=== PATIENT | male | born 1990 ===

== ENCOUNTER 2021-02-14 10:37 | Outpatient (REF) | payer OTHER, SELFPAY ==
[2021-02-14 13:36] LABS: Hematocrit 45.7 % (42.0-52.0); Hemoglobin 15.4 g/dl (14.0-18.0); Mean Corpuscular HGB Conc 33.7 g/dl (31.0-36.0); Mean Corpuscular Hemoglobin 28.8 pg (27.0-33.0); Mean Corpuscular Volume 85.6 fL (80.0-98.0); Mean Platelet Volume 8.8 fL (9.4-12.4); Platelet Count 288 X10*3/uL (160-400); Red Blood Count 5.34 X10*6/uL (4.60-5.80); Red Cell Distribution Width 11.8 % (11.0-16.0); White Blood Count 7.7 X10*3/uL (4.8-10.8)
[2021-02-14 14:54] LABS: Alanine Aminotransferase 26 U/L (0-40); Albumin Level 4.4 g/dL (3.5-5.0); Alkaline Phosphatase 51 U/L (39-117); Anion Gap 16 (12-20); Aspartate Amino Transferase 27 U/L (5-37); Bilirubin Total 1.3 mg/dL (0.0-1.0); Blood Urea Nitrogen 16 mg/dL (9-16); Calcium 9.6 mg/dL (8.4-10.2); Carbon Dioxide 24 mmol/L (22-29); Chloride 105 mmol/L (96-108); Cholesterol 185 mg/dL; Estimated Glomerular Filt Rate > 60; Glucose Fasting 92 mg/dL (60-99); HDL Cholesterol 36 mg/dL; LDL Cholesterol Calculated 121 mg/dl; Potassium 4.6 mmol/L (3.3-5.1); Sodium 140 mmol/L (135-145); Total Protein 7.4 g/dL (6.5-8.0); Triglycerides 143 mg/dL
[2021-02-14 14:58] LABS: TSH reflex Free T4 1.89 uIU/mL (0.32-4.0)
== END 2021-02-14 10:38 | disposition home or self-care (01) ==
LOC: HO.WFDLDS 10:37
PROVIDERS: Visit Provider Hospitalist
DX: Z00.01 Encounter for general adult medical examination with abnormal findings (principal)
CPT/HCPCS: 36415; 80053; 80061; 84443; 85027

== ENCOUNTER 2021-02-21 10:04 | Outpatient (REF) | payer OTHER, SELFPAY ==
[2021-02-21 13:41] LABS: Anion Gap 13 (12-20); Blood Urea Nitrogen 17 mg/dL (9-16); Calcium 9.7 mg/dL (8.4-10.2); Carbon Dioxide 28 mmol/L (22-29); Chloride 103 mmol/L (96-108); Estimated Glomerular Filt Rate > 60; Glucose Fasting 99 mg/dL (60-99); Potassium 4.5 mmol/L (3.3-5.1); Sodium 139 mmol/L (135-145)
== END 2021-02-21 10:05 | disposition home or self-care (01) ==
LOC: HO.WFDLDS 10:04
PROVIDERS: Visit Provider Hospitalist
DX: Z00.00 Encounter for general adult medical examination without abnormal findings (principal); J35.1 Hypertrophy of tonsils
CPT/HCPCS: 36415; 80048

== ENCOUNTER 2023-11-19 15:39 | Outpatient (AMB) | payer OTHER, SELFPAY ==
--- NOTE | 2023-11-19 15:43 | MHC.OFFWIV ---
Intake Vital Signs 11/19/23 15:45 Height 5 ft 6 in Weight 200 lb BMI 32.3 BP 110/66 Blood Pressure Location Rt brachial Position Sitting Pulse 73 Pulse Source Pulse Oximeter Temp 99.1 F Temp Source Oral Pulse Oximetry (%) 98 Oxygen Delivery Method Room Air Intake Visit Reasons: EP RT wrist injury Intake Note: pt c/o RT wrist pain. Happened 2 weeks ago working on pool Patient Tobacco Use Status: Never used Tobacco Allergies No Known Allergies Allergy (Verified 11/19/23 15:43) Do you need a note to return to daycare/school/sports/work: No HPI EP RT wrist injury HPI Details This note is constructed using voice recognition software. While every effort has been made to ensure accuracy, skiver welt end errors may have been included. The patient is a 33 year old male who presents to the clinic today with right wrist pain for the last 2 weeks. He notes that he was working on his pool when his hand slipped and he struck the medial aspect of it. He denies numbness, tingling, reduced strength, reduced range of motion. He does report pain in the lateral aspect on flexion and extension. He has been wearing a brace at home which reduces his ability to mobilize the wrist, but it seems to help the pain some. [facility] Surgical History No pertinent past surgical history Family History Mother No problems noted. Father High blood pressure Social History Housing: Apartment Alcohol intake: current Alcohol intake frequency: a few times a week Alcohol type: beer Patient Tobacco Use Status: Never used Tobacco e-Cigarette/Vaping Use: Never Used Second Hand Smoke Exposure: No service: Yes Current occupational status: employed Current occupation: Cognitive needs: No Hearing needs: No Vision needs: No Review of Systems Const All systems reviewed & are unremarkable except as noted in HPI and below Physical Exam Vital Signs: Last Vital Signs Temp 99.1 F 11/19/23 15:45 Pulse 73 11/19/23 15:45 BP 110/66 11/19/23 15:45 Pulse Ox 98 11/19/23 15:45 Oxygen Delivery Method Room Air 11/19/23 15:45 BMI result Body Mass Index 32.3 Const General: cooperative, healthy appearing, comfortable, no acute distress and alert Orientation/consciousness: patient oriented x3 Limitations: no limitations Skin General skin exam: no rashes or lesions noted, elasticity normal and turgor normal Neuro General: patient oriented x3 Extrem Other: No areas of tenderness to palpation. Pain in lateral aspect of wrist on flexion and extension. Strength 5/5 equal bilaterally. Intact distal neurovascular exam. General: Yes normal to inspection, Yes full ROM, Yes capillary refill normal and Yes normal exam except as noted Psych Appearance: grossly normal Mental Status: mental status grossly normal Speech and movement: Normal speech and movement present Affect: normal affect Assessment & Plan Assessment & Plan (1) Wrist pain, right: Code(s): M25.531 - Pain in right wrist Plan: X-ray ordered for evaluation. No obvious deformity on imaging. Advised rest, ice, compression, elevation, and [id number] NSAIDs for pain management. Advised patient to follow up with worsening or failure to resolve. Plan See above for full details and plan. Orders: Orders XR wrist RT min 3V Today M25.531 - Pain in right wrist Coding Level of Care Code Est Pt Level 4 (47340) Diagnoses Wrist pain, right M25.531
[2023-11-19 15:45] VITALS: BP 110/66; PULSE 73; TEMP 37.3; O2SAT 98; BMI 32.3
== END 2023-11-19 16:42 | disposition home or self-care (01) ==
PROVIDERS: PCP Hospitalist; Visit Provider Registered Nurse
DX: M25.531 Pain in right wrist (principal)
CPT/HCPCS: 99214

== ENCOUNTER 2023-11-19 16:00 | Outpatient (REF) | payer OTHER, SELFPAY ==
--- NOTE | ~2023-11-19 | XR_ITS ---
EXAMINATION: XR WRIST, RIGHT CLINICAL INFORMATION: Right wrist pain. COMPARISON: None available. TECHNIQUE: PA, lateral, and oblique views of the right wrist. FINDINGS: Alignment is anatomic with normal joint spaces. No displaced fracture. No erosions or abnormal soft tissue calcifications. No focal radiographic soft tissue swelling. XR/XR wrist RT min 3V IMPRESSION: No acute abnormality. Electronically signed by: Bob Marley MD 11/20/2023 08:12 AM EDT
== END 2023-11-19 16:01 | disposition home or self-care (01) ==
LOC: HO.HMGCX 16:00
PROVIDERS: PCP Hospitalist; Visit Provider Registered Nurse
DX: M25.531 Pain in right wrist (principal)
CPT/HCPCS: 73110

== ENCOUNTER 2023-12-22 11:26 | Outpatient (AMB) | payer OTHER, SELFPAY ==
--- NOTE | 2023-12-22 11:30 | A.OFFPC_ITS ---
Vital Signs 12/22/23 11:34 Height 5 ft 6 in Weight 213 lb 2 oz BMI 34.4 BP 132/72 Blood Pressure Location Rt brachial Position Sitting Respiration 14 Pulse 77 Pulse Source Pulse Oximeter Pulse Oximetry (%) 98 Oxygen Delivery Method Room Air Intake Visit Reasons: sean from [facility] referral Intake Note: to establish care and referral to orthopedic Allergies No Known Allergies Allergy (Verified 12/22/23 11:32) Medication List - Last Reconciled 12/22/23 by JASBIR Alcantar No Known Home Meds Tobacco use date assessed: 12/22/23 Dental Screening Dental Screen Date: 12/22/23 Did you have a dental visit in the last 12 months?: Yes Did you have a dental problem in the last 6 months where you did not have access to dental care?: No Was dental information given to patient?: Patient has dentist HPI HPI Comments 2 History of Present Illness Details 33 y/o M with seasonal allergies, GERD, obesity s/p tonsillectomy 12/2021 Social: . 1 son, 1 year, healthy. . Denies sig family hx. Health Maintenance: Tdap UTD 2022 Flu today 12/22/23 Specialists: Orthopedics Here today to est care & for CPE Old records reviewed prior to todays visit. Feels well. No meds No longer having any GI sx. Not effected by seasonal allergies. Needs orthopedic referral for right wrist pain. Was seen at the walk-in clinic for this in November. The no an x-ray from this office visit were reviewed today. He is not currently in physical therapy. He is not taking any medications. He reports that the pain is intermittent. He reports that he has a known injury prior to the onset of the pain. Plan: routine screening labs today Flu shot today Refer to ortho for eval and tx of R wrist RTO 1 year CPE sooner PRN This note is constructed using voice recognition software. While every effort has been made to ensure accuracy in program manager environmental planning, still errors may have been included Sometimes, these errors may affect the content or meaning of the given sentence . An additional 20 was spent addressing the problem(s) noted at todays visit. This includes time spent before the visit reviewing the chart, time spent during the visit, and time spent after the visit on documentation [facility] Medical History (Updated 12/22/23 @ 18:03 by Kelli Andrew [facility]) Heart burn Eczema Surgical History (Updated 12/22/23 @ 11:54 by Jeane Black MA) Hx of tonsillectomy Family History (Updated 12/22/23 @ 11:55 by Jeane Black MA) Mother No problems noted. Father High blood pressure Maternal Grandfather Throat cancer Social History (Updated 12/22/23 @ 11:34 by Jeane Black MA) Household Members: None Both parents involved: No Caregiver staying overnight: No Housing: Apartment Are you a primary care professional to a significant other at home: No Do you presently have visiting nurse or other home services: No 75 years or older and lives alone: No Alcohol intake: current Alcohol intake frequency: a few times a week Alcohol type: beer Patient Tobacco Use Status: Never used Tobacco e-Cigarette/Vaping Use: Never Used Second Hand Smoke Exposure: No service: Yes Current occupational status: employed Current occupation: [employer] Cognitive needs: No Hearing needs: No Vision needs: No Questionnaire PHQ-9 Over the last 2 weeks, how often have you been bothered by any of the following problems? 1. Little interest or pleasure in doing things: not at all 2. Feeling down, depressed, or hopeless: not at all 3. Trouble falling or staying asleep, or sleeping too much: not at all 4. Feeling tired or having little energy: more than half the days 5. Poor appetite or overeating: not at all 6. Feeling bad about yourself - or that you are a failure or have let yourself or your family down: not at all 7. Trouble concentrating on things, such as reading the newspaper or watching television: not at all 8. Moving or speaking so slowly that other people could have noticed. Or the opposite - being so fidgety or restless that you have been moving around a lot more than usual: not at all 9. Thoughts that you would be better off or of hurting yourself in some way: not at all Total score: 2 Depression Screening Interpretation: Negative Depression Screening Done: Yes [id number] - PHQ-9 Billing: Yes Source: Developed by Drs. Elbert Peters, Agata Carlisle, Damien Perez and colleagues, with an educational rachel from [employer]. Thrive Questionnaire Date Thrive assessed: 12/22/23 I am a: Patient What is your living situation today?: I have a steady place to live Within the past 12 months, did the food you bought not last and you didn't have the money to get more?: Never true Within the past 12 months, did you worry whether your food would run out before you got money to buy more?: Never true Do you have trouble paying for medicines?: No Do you have trouble getting transportation to medical appointments?: No Do you have trouble paying your heating and electricity bill?: No Do you have trouble taking care of your child, family member or friend?: No Do you have trouble with day-to-day activities such as bathing, preparing meals, shopping, managing finances, etc.?: No Are you currently unemployed and looking for a job?: No Are you interested in more education?: No Please select the resources that you would like help with: None Currently or been in a relationship where the following occur: No concerns reported THRIVE Score: 0 AUDIT C Alcohol Use Questionnaire (AUDIT-C) 1. How often do you have a drink containing alcohol?: Monthly or less 2. How many drinks containing alcohol do you have on a typical day when you are drinking?: 1 or 2 3. How often do you have six or more drinks on one occasion?: Never Total Score: 1 Score Reviewed/Action Taken: Yes RAMON-7 AMB Questionnaire RAMON-7 Date RAMON - 7 assessed: 12/22/23 Feeling nervous, anxious, or on edge: 0 = Not at all Not being able to stop or control worryin = Not at all Worrying too much about different things: 1 = Several days Trouble relaxin = Not at all Being so restless that it is hard to sit still: 0 = Not at all Becoming easily annoyed or irritable: 1 = Several days Feeling afraid as if something awful might happen: 0 = Not at all Total RAMON-7 score (0-4 normal; 5-9 mild; 10-14 moderate; 15-21 severe): 2 Source: Developed by Drs. Elbert Peters, Agata Carlisle, Damien Perez and colleagues, with an educational rachel from [employer]. RAMON-7 Assessment Billing RAMON-7 Assessment Tool: RAMON-7 Assessment 58803 Review of Systems Const Details: Constitutional: Denies fever. Skin: Denies rash. Eye: Denies eye pain. ENMT: Denies sore throat and nasal congestion. Respiratory: Denies shortness of breath and cough. Gastrointestinal: Denies nausea, vomiting or abdominal pain. Cardiovascular: Denies chest pain and syncope. Genitourinary: Denies dysuria. Musculoskeletal: Denies back pain . Neurologic: Denies headaches, confusion, and weakness. Psychiatric: Denies suicidal thoughts and substance abuse. Allergy/ Immunologic: Denies impaired immunity. Physical exam (Primary Care) Vital Signs: Last Vital Signs Pulse 77 12/22/23 11:34 Resp 14 12/22/23 11:34 BP 132/72 12/22/23 11:34 Pulse Ox 98 12/22/23 11:34 Oxygen Delivery Method Room Air 12/22/23 11:34 BMI result Body Mass Index 34.4 BMI Assessment/Plan discussion: High BMI High, discussed plan: lifestyle Tobacco/Smoking Status: Tobacco use Status Tobacco use date assessed 12/22/23 12/22/23 11:36 Patient Tobacco Use Status Never used Tobacco 12/22/23 11:34 e-Cigarette/Vaping Use Never Used 12/22/23 11:34 PHQ-9: PHQ-9 Score PHQ-9: Total score 2 12/22/23 12:49 Depression Screening Interpretation: Negative Thrive Assessment: Date of Thrive Assessment Date Thrive assessed 12/22/23 12/22/23 11:55 Currently or been in a relationship where the following occur: No concerns reported Const Other: General: Well developed, well nourished, in no acute distress. Appears stated age. Head: Normocephalic, atraumatic. Eyes: Pupils are equal, round and reactive to light and accommodation. Conjunctivae are clear. Vision grossly normal. Ears: TMs clear AU, EACS WNL Nose: Patent, without discharge. Mouth: There are no ulcers or lesions noted. No inflammation, no post nasal drip, no plaques nor exudates. Neck: Supple, no adenopathy or thyromegaly. Lungs: Clear to auscultation bilaterally. No rales, rhonchi or wheeze noted. Good air flow in all suarez. Heart: Regular rate and rhythm. No murmurs, click, rubs or gallops are noted. Abdomen: Bowel sounds present in all quadrants. The abdomen is soft, nontender, with no masses or organomegaly noted. No hernias are noted. Musculoskeletal: Joints are nontender, without swelling, redness, or effusions. Range of motion is observed to be normal. 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 Extremities: No clubbing, cyanosis nor edema is noted. Neurologic: Gait and station normal. Cranial Nerves 2-12 intact. Motor strength grossly symmetrical and intact. No sensory loss. Balance normal. Skin: No rashes, ulcers, or lesions noted. Turgor is good. Skin color is good. Hair and nails are without abnormalities. Psych: Normal eye contact, affect and mood appropriate, and normal interactions. Patient is alert and appropriate to context. Office Procedures Flu Questionnaire Does the patient have a severe egg allergy?: No Does the patient have severe life threatening allergies?: No Does the patient have a fever or illness today?: No Has the patient ever had Guillain-Theodore Syndrome?: No Has the patient ever had any past reaction to a flu shot?: No Immunizations Fluarix Triv 3035-4767 (PF) 45 mcg (15 mcg x 3)/0.5 mL IM syringe Performing Provider: JASBIR Alcantar Performing Location: [facility] Administered by: Renay Fisher RN on 12/22/23 12:39 Dose Route Admin Location Dispensed Lot Number Expiration Date [facility] [employer] Machine Operator 0.5 mL IM Left Deltoid 0.5 mL [id number] 09/13/24 [id number] Gtxh VIS Given Date VIS Provided VIS Publication Date 12/22/23 Single Vaccine 20 Eligibility Eligibility Date Funding Source Not [facility] Eligible 12/22/23 Private Results Reviewed [place]ed[place] [facility] [place] [facility] [address] [place] [address] XRay Report Signed Patient: Christiano Hardy MR#: [id number] : 1990 Acct:[id number] Age/Sex: 33 / M ADM Date: 11/19/23 Loc: HO.[facility] Attending Dr: Milagro Garibay [employer] WORK[employer] Ordering Physician: Milagro Garibay NP Date of Service: 11/19/23 Procedure(s): XR wrist RT min 3V Accession Number(s): [id number] cc: Milagro Garibay [employer] UT[employer] WORK[employer]; Shannan Villeda NP~ EXAMINATION: XR WRIST, RIGHT CLINICAL INFORMATION: Right wrist pain. COMPARISON: None available. TECHNIQUE: PA, lateral, and oblique views of the right wrist. FINDINGS: Alignment is anatomic with normal joint spaces. No displaced fracture. No erosions or abnormal soft tissue calcifications. No focal radiographic soft tissue swelling. XR/XR wrist RT min 3V IMPRESSION: No acute abnormality. Electronically signed by: Bob Marley MD 11/20/2023 08:12 AM EDT RP Dictated By: Octavia Marley MD Signed By: <Electronically signed by Octavia Marley MD in OV> 11/20/23 0812 DD/ 1603 TD/TT: 11/19/23 1609 [employer] [place]: Coding Level of Care Code Est Pt Level 3 (87784) Est Pt Prev Care 18-39y(38470) Diagnoses Annual visit for general adult medical examination with abnormal findings Z00.01 Laboratory exam ordered as part of routine general medical examination Z00.00 Right wrist pain M25.531 Obesity (BMI 30.0-34.9) E66.811 Flexural eczema L20.82 Eczema type: flexural History of gastroesophageal reflux (GERD) Z87.19 History of seasonal allergies Z88.9 Additional Codes RAMON-7 Assessment Billing - RAMON-7 Assessment Tool: RAMON-7 Assessment 56996 ([id number]) Assessment & Plan Assessment & Plan (1) Annual visit for general adult medical examination with abnormal findings: Code(s): Z00.01 - Encounter for general adult medical examination with abnormal findings Category: Medical Plan: . (2) Laboratory exam ordered as part of routine general medical examination: Code(s): Z00.00 - Encounter for general adult medical examination without abnormal findings Category: Medical Plan: . (3) Right wrist pain: Code(s): M25.531 - Pain in right wrist Category: Medical Plan: . (4) Obesity (BMI 30.0-34.9): Code(s): E66.811 - Obesity, class 1 Category: Medical Plan: . (5) Eczema: Code(s): L30.9 - Dermatitis, unspecified Category: Medical Qualifiers: Eczema type: flexural Qualified Code(s): L20.82 - Flexural eczema Plan: . (6) History of gastroesophageal reflux (GERD): Code(s): Z87.19 - Personal history of other diseases of the digestive system Category: Medical Plan: . (7) History of seasonal allergies: Code(s): Z88.9 - Allergy status to unspecified drugs, medicaments and biological substances Category: Medical Plan: . Orders: Orders Comprehensive Met. Panel Today Z00.00 - Encounter for general adult medical examination without abnormal findings, Z00.01 - Encounter for general adult medical examination with abnormal findings TSH reflex Free T4 Today Z00.00 - Encounter for general adult medical examination without abnormal findings, Z00.01 - Encounter for general adult medical examination with abnormal findings Influenza [id number] Immunization Today Z23 - Encounter for immunization Hemoglobin A1c Today Z00.00 - Encounter for general adult medical examination without abnormal findings, Z00.01 - Encounter for general adult medical e xamination with abnormal findings LDL Cholesterol Direct Today Z00.00 - Encounter for general adult medical examination without abnormal findings, Z00.01 - Encounter for general adult medical examination with abnormal findings Microalbumin, Random (w Creat) Today Z00.00 - Encounter for general adult medical examination without abnormal findings, Z00.01 - Encounter for general adult medical examination with abnormal findings Referrals Orthopedics Referral M25.531 - Pain in right wrist Patient Instructions: Walk-In Care (Urgent Care): We Make it Easy Walk-in for urgent medical issues such as: ? Seasonal Allergies ? Insect Bites ? Cough ? Diarrhea ? Acute Asthma Attacks ? Back, Knee or Joint Pain ? Ear Infection ? Fever without a Rash ? Headaches ? Nausea ? Langlois Eye, Rash or Skin Irritation ? Sore Throat ? Sports Physicals ? Vomiting Most insurances are accepted. Patients do not need to be part of the [facility] to seek care at the walk-in clinic. Locations [facility] [place] [address] [address] ? [phone] [facility] [place] in [place] provides services to ages 18 and over. Open Friday-Friday: 8 a.m. to 5 p.m. and Friday: 9 a.m. to 3 p.m.* *Hours may vary due to staffing availability. To confirm Walk-In Care hours in [place], please call [phone]. [address] [place] [address] ? [phone] [facility] Walk-In Care in [place] provides services to ages 12 and over. Open Friday-Friday: 8 a.m. to 5 p.m. Hours may vary due to staffing availability. To confirm Walk-In Care hours in [place], please call [phone]. LABORATORY SERVICES: [facility] ? Primary Location [address] [place] [address] Friday through Friday 6:00 AM ? 5:00 PM Friday 7:00 AM ? 11:00 AM* [phone] The [facility] is centrally located near the front entrance of the [facility] for easy outpatient access. Convenient parking is provided for outpatients. *Hours may vary due to staffing availability. To confirm Laboratory hours for any location, please call [phone]. Offsite Location For your convenience, we offer offsite laboratory draw stations at the following locations: [address] [place] [address] ? [address], [address] Friday through Friday 7:30 AM ? 1:00 PM* [phone] *Hours may vary due to staffing availability. To confirm Laboratory hours for any location, please call [phone]. [place] ? [address] Friday through Friday 6:00 AM ? 3:30 PM* Friday 6:30 AM ? 3 PM* [phone] *Hours may vary due to staffing availability. To confirm Laboratory hours for any location, please call [phone] [place] [address] Friday through Friday 7:30 AM ? 4:00 PM* [phone] *Hours may vary due to staffing availability. To confirm Laboratory hours for any location, please call [phone] [place] [address] Friday through 9:00 AM ? 4:00 PM* *Hours may vary due to staffing availability. To confirm Laboratory hours for any location, please call [phone]. Appointments are not necessary. Walk-ins are welcome. Like all the departments throughout the [facility], our Lab undergoes frequent reviews to ensure the quality and accuracy of test results, and our staff takes special pride in its status as a nationally accredited facility. Patient Portal: ONE PATIENT. ONE RECORD. BETTER CARE. [facility] has a fully integrated, cutting- edge mobile electronic health information system that has revolutionized the way we care for our patients and manage our organization. This system improves communication and coordination enabling us to provide safe, higher-quality care, and an overall positive experience for staff and patients. Our first priority, as always, is to deliver the highest quality care possible. The system is running in the background supporting that priority. This portal is for all [facility] services and practices. If you are experiencing any technical difficulties with enrolling or logging into the Patient Portal please complete the [facility] Patient Portal Technical Support Form. [facility] now offers a new secure on-line interactive tool for patients to review their health information ? Patient Portal. This interactive web portal will enable patients and their families to take an active role in their care by providing easy, secure access to their health information via the internet. The Patient Portal provides patients with instant access to their health information, including laboratory results, medications, allergies, demographic information, visit history, and more. In addition to managing their own care, parents and health care proxies with authorized consent will appreciate the ability to access the records of those individuals for whom they provide care. Please note: if you wish to gain access (Proxy) to another patient?s portal, you will be required to come to the Medical Records Department in person at [facility]. Both the patient giving proxy access and the proxy will need to provide photo identification and complete the appropriate authorization. The Patient Portal also allows track their appointments online. The [facility] Patient Portal also saves patients time by allowing them to submit updates to their demographic and contact information prior to their visits. Portal email notifications will also alert patients to any new activity on their portal, such as test results and new appointments. In order to initially enroll in the [facility] Patient Portal, you will need to enter some required information including the following: ? your [facility] Medical Record number ? your personal home email address ? name ? date of Please note: In order to enroll in the [facility] Patient Portal, we need to have your email address on file in your electronic medical record. The email address needs to be specific for one person (yourself) in order for your Portal enrollment to be successful. You can update your email address in person with our Registration staff when you are registering for a hospital visit. Otherwise , you will need to come to the Health Information Management (Medical Records) Department at [facility]. We are open from Friday ? Friday from 7:30 a.m. ? 4:30 p.m. You will be required to present a photo id. Once you have successfully enrolled in the Patient Portal, you will receive a one-time user id and password for the Portal, sent to your email address. This will allow you to log into the Patient Portal within 99 hrs and reset your own logon id and password, and define personal security questions. Once your permanent login and password have been set, you can log into the [facility] Patient Portal at any time via the blue button above or from the Portal Logon button on any page of the [facility] website. [facility] encourage all of our patients to enroll in Patient Portal as it presents a valuable opportunity for patients and their families to actively participate in their care and stay healthy Welcome to [facility]. We look forward to working with you. Health screenings for men ages 40 to 64 You should visit your health care provider regularly, even if you feel healthy. The purpose of these visits is to: Screen for medical issues Assess your risk for future medical problems Encourage a healthy lifestyle Update vaccinations and other preventive care services Help you get to know your provider in case of an illness Information Even if you feel fine, you should still see your provider for regular checkups. These visits can help you avoid problems in the future. For example, the only way to find out if you have high blood pressure is to have it checked regularly. High blood sugar and high cholesterol level also may not have any symptoms in the early stages. Simple blood tests can check for these conditions. There are specific times when you should see your provider or receive specific health screenings. The [place] Preventive Services Task Force publishes a list of recommended screenings. Below are screening guidelines for men ages 40 to 64. BLOOD PRESSURE SCREENING Have your blood pressure checked at least once every year. Watch for blood pressure screenings in your area. Ask your provider if you can stop in to have your blood pressure checked. Ask your provider if you need your blood pressure checked more often if: You have diabetes, heart disease, kidney problems, or are overweight or have certain other health conditions You have a first-degree relative with high blood pressure You are Black Your blood pressure top number is from 120 to 129 mm Hg, or the bottom number is from 70 to 79 mm Hg If the top number is 130 mm Hg or greater or the bottom number is 80 mm Hg or greater, this is considered stage 1 hypertension. Schedule an appointment with your provider to learn how you can lower your blood pressure. Effects of age on blood pressure CHOLESTEROL SCREENING Cholesterol screening should begin at age 35 for men with no known risk factors for coronary heart disease. Repeat cholesterol screening should take place: Every 5 years for men with normal cholesterol levels More often if changes occur in lifestyle (including weight gain and diet) More often if you have diabetes, heart disease, kidney problems, or certain other conditions COLORECTAL CANCER SCREENING If you are under age 45, talk to your provider about getting screened. You may need to be screened if you have a strong family history of colon cancer or polyps. Screening may also be considered if you have risk factors such as a history of inflammatory bowel disease or polyps. If you are age 45 to 75, you should be screened for colorectal cancer. There are several screening tests available: A stool-based fecal occult blood (gFOBT) or fecal immunochemical test (FIT) every year A stool sDNA test every 1 to 3 years Flexible sigmoidoscopy every 5 years or every 10 years with stool testing FIT done every year CT colonography (virtual colonoscopy) every 5 years Colonoscopy every 10 years You may need a colonoscopy more often if you have risk factors for colorectal cancer, such as: Ulcerative colitis A personal or family history of colorectal cancer A history of growths in your colon called adenomatous polyps DENTAL EXAM Go to the dentist once or twice every year for an exam and cleaning. Your dentist will evaluate if you have a need for more frequent visits. DIABETES SCREENING All adults who do not have risk factors for diabetes should be screened starting at age 35 and repeated every 3 years. If you have other risk factors for diabetes, such as a first degree relative with diabetes, overweight or obesity, high blood pressure, prediabetes, or a history of heart disease, you may be tested more often. If you are overweight and have other risk factors, such as high blood pressure and are planning to become , screening is recommended. EYE EXAM Have an eye exam every 2 to 4 years ages 40 to 54 and every 1 to 3 years ages 55 to 64. Your provider may recommend more frequent eye exams if you have vision problems or glaucoma risk. Have an eye exam that includes an examination of your retina (back of your eye) at least every year if you have diabetes. IMMUNIZATIONS Commonly needed vaccines include: Flu shot: get one every year COVID-19 vaccine: ask your provider what is best for you Tetanus-diphtheria and acellular pertussis (Tdap) vaccine: have as one of your tetanus-diphtheria vaccines if you did not receive it as an adolescent Tetanus-diphtheria: have a booster (or Tdap) every 10 years Varicella vaccine: receive 2 doses if you never had chickenpox or the varicella vaccine and were born in 1980 or after Hepatitis B vaccine: receive 2, 3, or 4 doses, depending on your exact circumstances, if you did not receive these as a child or adolescent, until age 59 Shingles (herpes zoster) vaccine: at or after age 50 Ask your provider if you should receive other immunizations, especially if you have certain medical conditions, such as diabetes or are at increased risk for some diseases such as pneumonia. INFECTIOUS DISEASE SCREENING Screening for hepatitis C: all adults ages 18 to 79 should get a one-time test for hepatitis C. Screening for human immunodeficiency virus (HIV): all people ages 15 to 65 should get a one-time test for HIV. Depending on your lifestyle and medical history, you may need to be screened for infections such as syphilis, chlamydia, and other infections. LUNG CANCER SCREENING You should have an annual screening for lung cancer with low-dose computed tomography (LDCT) if: You are age 50 to 80 years AND You have a 20 pack-year smoking history AND You currently smoke or have quit within the past 15 years OSTEOPOROSIS SCREENING If you are age 50 to 64 and have risk factors for osteoporosis, you should discuss screening with your provider. Risk factors can include long-term steroid use, low body weight, smoking, heavy alcohol use, having a fracture after age 50, or a family history of hip fracture or osteoporosis. Osteoporosis PHYSICAL EXAM All adults should visit their provider from time to time, even if they are healthy. The purpose of these visits is to: Screen for diseases Assess risk of future medical problems Encourage a healthy lifestyle Update vaccinations and other preventive care services Maintain a relationship with a provider in case of an illness Your height, weight, and body mass index (BMI) should be checked at every exam. During your exam, your provider may ask you about: Depression and anxiety Diet and exercise Alcohol and tobacco use Safety, such as use of seat belts and smoke detectors Your medicines and risk for interactions PROSTATE CANCER SCREENING If you're 55 through 69 years old, before having the test, talk to your provider about the pros and cons of having a PSA test. Ask about: Whether screening decreases your chance of dying from prostate cancer. Whether there is any harm from prostate cancer screening, such as side effects from testing or overtreatment of cancer when discovered. Whether you have a higher risk of prostate cancer than others. If you are age 55 or younger, screening is not generally recommended. You should talk with your provider about if you have a higher risk for prostate cancer. Risk factors include: Having a family history of prostate cancer (especially a brother or father) Being If you choose to be tested, the PSA blood test is repeated over time (yearly or less often), though the best frequency is not known. Prostate examinations are no longer routinely done on men with no symptoms. Prostate cancer SKIN EXAM Your provider may check your skin for signs of skin cancer, especially if you're at high risk. People at high risk include those who have had skin cancer before, have close relatives with skin cancer, or have a weakened immune system. TESTICULAR EXAM The [place] Preventive Services Task Force (USPSTF) now recommends against performing testicular self-exams. Doing testicular self-exams has been shown to have little to no benefit.
[2023-12-22 11:34] VITALS: BP 132/72; PULSE 77; RESP 14; O2SAT 98; BMI 34.4
== END 2023-12-22 13:15 | disposition home or self-care (01) ==
PROVIDERS: Visit Provider Nurse Practitioner Family
DX: Z00.00 Encounter for general adult medical examination without abnormal findings (principal); E66.811 Obesity, class 1; M25.531 Pain in right wrist; Z68.34 Body mass index [BMI] 34.0-34.9, adult; L20.82 Flexural eczema; Z87.19 Personal history of other diseases of the digestive system; Z88.9 Allergy status to unspecified drugs, medicaments and biological substances; Z23 Encounter for immunization

== ENCOUNTER → 2023-12-22 11:26 | Outpatient (BNVA) | payer OTHER, SELFPAY | PROVIDERS: Visit Provider Nurse Practitioner Family ==

== ENCOUNTER 2023-12-22 12:59 | Outpatient (REF) | payer OTHER, SELFPAY ==
[2023-12-22 14:27] LABS: Estimated Average Glucose 105 mg/dL; Hemoglobin A1C 126.8438 umol/L; Hemoglobin A1c % 5.3 % (<6.0); Total Hemoglobin (HGBA1C) 3653.0131 umol/L
[2023-12-22 14:41] LABS: Microalbum/Creatinine Ratio Ur 3.5 ug/mg cr (<30)
[2023-12-22 18:45] LABS: Alanine Aminotransferase 19 U/L (0-40); Albumin Level 4.3 g/dL (3.5-5.0); Alkaline Phosphatase 40 U/L (39-117); Anion Gap 10 (12-20); Aspartate Amino Transferase 17 U/L (5-37); Bilirubin Total 0.9 mg/dL (0.0-1.0); Blood Urea Nitrogen 14 mg/dL (9-16); Carbon Dioxide 28 mmol/L (22-29); Chloride 103 mmol/L (96-108); Estimated Glomerular Filt Rate > 60; Glucose Random 121 mg/dL (60-115); Potassium 3.6 mmol/L (3.3-5.1); Sodium 137 mmol/L (135-145); Total Protein 7.2 g/dL (6.5-8.0)
[2023-12-22 19:01] LABS: TSH reflex Free T4 1.47 uIU/mL (0.32-4.0)
[2023-12-23 19:57] LABS: LDL Cholesterol Direct 112 mg/dL (<100)
== END 2023-12-22 13:00 | disposition home or self-care (01) ==
LOC: HO.WFDLDS 12:59
PROVIDERS: Visit Provider Nurse Practitioner Family
DX: Z00.01 Encounter for general adult medical examination with abnormal findings (principal); M25.531 Pain in right wrist; E66.811 Obesity, class 1; Z68.34 Body mass index [BMI] 34.0-34.9, adult; L20.82 Flexural eczema; Z87.19 Personal history of other diseases of the digestive system; Z88.9 Allergy status to unspecified drugs, medicaments and biological substances; Z23 Encounter for immunization
CPT/HCPCS: 36415; 80053; 82043; 82570; 83036; 83721; 84443; 90471; 90656; 96127; 99212

== ENCOUNTER 2024-01-20 09:00 | Outpatient (AMB) | payer OTHER, SELFPAY ==
[2024-01-20 09:01] VITALS: BMI 34.4
--- NOTE | 2024-01-20 09:01 | A.OFFVIS_ITS ---
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 Patient reports that he was working on his pool at the end of October, when his hand slipped off the knob he was twisting and hit the deck with the ulnar aspect of hand. He was wearing a brace shortly after injury which provided mild relief. Pain is not felt all the time, but is felt when trying to do pushups, twisting motions like opening a jar, resting his head on his hand and applying pressure. Denies numbness and tingling. XR obtained at the walk-in 11/19/23, has not completed PT. He takes ibuprofen occasionally for his hand which helps. 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 The patient states that on that date, he was cleaning his pool, when his hand slipped and hit concrete. The patient states that since this time, he has been experiencing significant discomfort in his right wrist, particularly of the radial aspect and radiating to the ulnar aspect and down slightly into the forearm. The patient states that this has made it quite difficult for him to do pushups, which are something that he needs to do on a regular basis as he is in the . Patient denies any numbness or tingling in the right hand. No other acute complaints or concerns at this time. [facility] Medical History (Updated 12/22/23 @ 18:03 by Kelli Andrew, [facility]) Heart burn Eczema Surgical History (Updated 12/22/23 @ 11:54 by Jeane Black MA) Hx of tonsillectomy Family History (Updated 12/22/23 @ 11:55 by Jeane Black MA) Mother No problems noted. Father High blood pressure Maternal Grandfather Throat cancer Social History (Updated 12/22/23 @ 11:34 by Jeane Black MA) Household Members: None Both parents involved: No Caregiver staying overnight: No Housing: Apartment Are you a primary critical care clinical nurse specialist to a significant other at home: No Do you presently have visiting nurse or other home services: No 75 years or older and lives alone: No Alcohol intake: current Alcohol intake frequency: a few times a week Alcohol type: beer Patient Tobacco Use Status: Never used Tobacco e-Cigarette/Vaping Use: Never Used Second Hand Smoke Exposure: No service: Yes Current occupational status: employed Current occupation: [employer] Cognitive needs: No Hearing needs: No Vision needs: No Review of Systems Const All systems reviewed & are unremarkable except as noted in HPI and below Physical Exam Vital Signs: BMI result Body Mass Index 34.4 Extrem Other: Right hand exam Patient is alert, oriented, and in no acute distress. Neuro: Normal sensation of the tips of all digits of the [] hand at this time Vascular: Cap refill brisk Pain: Tenderness to palpation of the radial styloid and anatomical snuffbox Tenderness to palpation of the scaphoid tubercle No tenderness to palpation of the ulnar styloid, DRUJ, or elsewhere in the right hand or wrist ROM: Patient is able to make a closed fist and extend all digits of the right hand fully, but reports some mild discomfort in the radial wrist when doing so Skin: No lacerations or abrasions. General: No ecchymosis, erythema, or evidence of infection. Psych: Appears grossly normal Affect normal Attitude cooperative Results Reviewed Results Reviewed: X-rays obtained in the office today and independently reviewed by me, Santana Delgado PA-C, demonstrate no radioevident fracture or acute bony abnormality. Assessment & Plan Assessment & Plan (1) Right wrist pain: Code(s): M25.531 - Pain in right wrist Category: Medical Plan 1. Anatomical snuffbox tenderness of right wrist Date of injury in late October At this time, patient is placed into a Velcro thumb spica splint to be worn like a cast except for bathing Patient is also referred for urgent CT scan of the right wrist to assess the health of the scaphoid Patient was amenable to this plan Patient will follow-up after CT scan for results review and discussion of further treatment options if indicated, sooner with any acute concerns Orders: Orders CT wrist RT wo IV con Today M25.531 - Pain in right wrist Coding Level of Care Code New Pt Level 3 (19349) Diagnoses Right wrist pain M25.531
== END 2024-01-20 09:41 | disposition home or self-care (01) ==
LOC: HO.HOS 09:00
PROVIDERS: PCP Nurse Practitioner Family
DX: M25.531 Pain in right wrist (principal)
CPT/HCPCS: 99203

== ENCOUNTER → 2024-01-20 09:00 | Outpatient (BNVA) | payer OTHER, SELFPAY | PROVIDERS: PCP Nurse Practitioner Family | DX: M25.531 Pain in right wrist (principal); Z91.85 Personal history of military service | CPT/HCPCS: 99202 ==

== ENCOUNTER 2024-01-27 07:31 | Outpatient (REF) | payer OTHER, SELFPAY ==
--- NOTE | ~2024-01-27 | CT_ITS ---
EXAMINATION: CT WRIST WITHOUT CONTRAST, RIGHT CLINICAL INFORMATION: Right wrist pain. Snuffbox tenderness. Concern for scaphoid fracture. COMPARISON: Right wrist radiographs dated 11/19/2023. TECHNIQUE: Contiguous axial CT images of the right wrist were obtained without contrast. Multiplanar reformats were provided and reviewed. This CT examination was performed using dose optimization techniques as appropriate, variously including the following: *Automated exposure control *Adjustment of mA and/or kV according to patient size (this includes techniques or standardized protocols for targeted exams where dose is matched to indication/reason for exam; i.e. extremities or head) *Use of iterative reconstruction technique DLP: 140 mGy-cm FINDINGS: No displaced fracture. Focal linear lucency through the radial cortex of the distal scaphoid (series 7 image 26/56), favored to represent a vascular channel rather than a nondisplaced fracture. No additional cortical defect. Normal carpal alignment. No joint space narrowing or marginal osteophytes. No concerning lytic or blastic osseous lesion. No soft tissue mass or fluid collection. Possible small radiocarpal joint effusion. The visualized flexor and extensor tendons are intact, however, evaluation is limited on CT examination. CT/CT wrist RT wo IV con IMPRESSION: 1. No displaced fracture. 2. Focal linear lucency through the radial cortex of the distal scaphoid, favored to represent a vascular channel rather than a nondisplaced fracture. 3. Possible small radiocarpal joint effusion. If there is concern for occult osseous injury or intrinsic ligament/triangular fibrocartilage complex injury, MRI could help further evaluate. Electronically signed by: Rell Alfredo MD 01/27/2024 09:19 AM JONAH
== END 2024-01-27 07:32 | disposition home or self-care (01) ==
LOC: HO.CT 07:31
PROVIDERS: PCP Nurse Practitioner Family
DX: M25.531 Pain in right wrist (principal)
CPT/HCPCS: 73200

== ENCOUNTER 2024-02-10 15:31 | Outpatient (AMB) | payer OTHER, SELFPAY ==
--- NOTE | 2024-02-10 15:40 | A.OFFVIS_ITS ---
Intake Visit Reasons: OV- R wrist CT review Intake Note: Christiano is a 33 year old right hand dominant male who presents today for a right hand CT review. Patient reports that he was working on his pool about 3 months ago when his hand slipped off a knob he was twisting, hitting the deck with the ulnar aspect of hand. Patient wore a brace shortly after the injury which provided mild relief. Today, patient reports his pain has not improved despite of the thumb spica wrist brace he is using. Denies numbness, tingling, finger locking. Allergies No Known Allergies Allergy (Verified 02/10/24 15:41) HPI HPI OV- R wrist CT review : Details: Christiano is a 33 year old right hand dominant man who presents for a CT scan review of his right wrist pain, S/P fall in ~11/09/23. He is an [employer]. His chief complaint at this point is that he has pain when putting his wrist in push-up position and under load. Also, sometimes he will have some pain in his wrist in other positions when under load. Otherwise, he does not have pain in his wrist and finds that he has more discomfort after wearing his splint. [facility] Medical History (Updated 12/22/23 @ 18:03 by Kelli Andrew [facility]) Heart burn Eczema Surgical History (Updated 12/22/23 @ 11:54 by Jeane Black MA) Hx of tonsillectomy Family History (Updated 12/22/23 @ 11:55 by Jeane Black MA) Mother No problems noted. Father High blood pressure Maternal Grandfather Throat cancer Social History (Updated 12/22/23 @ 11:34 by Jeane Black MA) Household Members: None Both parents involved: No Caregiver staying overnight: No Housing: Apartment Are you a primary pet care technician to a significant other at home: No Do you presently have visiting nurse or other home services: No 75 years or older and lives alone: No Alcohol intake: current Alcohol intake frequency: a few times a week Alcohol type: beer Patient Tobacco Use Status: Never used Tobacco e-Cigarette/Vaping Use: Never Used Second Hand Smoke Exposure: No service: Yes Current occupational status: employed Current occupation: Cognitive needs: No Hearing needs: No Vision needs: No Review of Systems Const All systems reviewed & are unremarkable except as noted in HPI and below Physical Exam Const General: cooperative, healthy appearing and no acute distress Orientation/consciousness: patient oriented x3 HEENT Head: Yes normocephalic and Yes atraumatic Eyes EOM: EOMs intact bilaterally Resp Effort & Inspection: normal respiratory effort and able to speak in complete sentences Cardio Jugular venous distension: no JVD Skin General skin exam: turgor normal Rashes: no rashes Neuro General: patient oriented x3 Extrem Other: Evaluation of Right Upper Extremity: The patient is alert, oriented, and in no acute distress No tenderness over the distal radius, DRUJ, or distal ulna DRUJ stable on exam No tenderness over the snuffbox or scaphoid tubercle Symmetrical prono-supination Nearly symmetrical wrist extension, however he has pain in the dorsal aspect of his wrist when bringing his right wrist into full extension. Again this is his chief complaint. He can make a tight fist with good strength and no pain CT/CT wrist RT wo IV con IMPRESSION: 1. No displaced fracture. 2. Focal linear lucency through the radial cortex of the distal scaphoid, favored to represent a vascular channel rather than a nondisplaced fracture. 3. Possible small radiocarpal joint effusion. If there is concern for occult osseous injury or intrinsic ligament/triangular fibrocartilage complex injury, MRI could help further evaluate. Dictated By: Rell Alfredo MD 01/27/24 Dr. Slaughter additional read of the CT scan: I saw the questionable nondisplaced fracture in the scaphoid tubercle. Upon specific examination of the patient in this area, he is completely nontender. This is not a fracture. Psych Appearance: grossly normal Affect: normal affect Attitude: cooperative Assessment & Plan Assessment & Plan (1) Right wrist pain: Code(s): M25.531 - Pain in right wrist Category: Medical Plan Assessment & Plan: 1. Right wrist pain, S/P fall DOI: ~11/09/23 I educated her about this condition I discussed operative and non-operative treatment options His primary complaint is of pain when loading the wrist while in full extension, such as push-ups or activities such as opening jars I recommend activity modification & OT hand therapy He should discontinue his splint at this time I discussed activity modification, he should work on stretching & strengthening exercises at home I ordered OT hand therapy to work on stretching, strengthening, and normalizing function, with the goal of being able to perform push-up exercises without pain He is the member of the . He was given a note for work to return on light duty, with a 15lb weight limit with his RUE, no push-up activities, and time off for OT hand therapy for the next 6 weeks. He will follow up in 6 weeks to see how he is doing Scribed for Cinda Slaughter MD by Chilo Huggins, medical device engineer, on 02/10/24 at 3:50 PM, EST. Orders: Orders OT Evaluation and Treatment Today M25.531 - Pain in right wrist Coding Level of Care Code Est Pt Level 4 (80134) Diagnoses Right wrist pain M25.531
== END 2024-02-10 16:13 | disposition home or self-care (01) ==
PROVIDERS: PCP Nurse Practitioner Family; Visit Provider Orthopaedic Surgery
DX: M25.531 Pain in right wrist (principal)
CPT/HCPCS: 99214

== ENCOUNTER → 2024-02-10 15:31 | Outpatient (BNVA) | payer OTHER, SELFPAY | PROVIDERS: PCP Nurse Practitioner Family; Visit Provider Orthopaedic Surgery | DX: M25.531 Pain in right wrist (principal); Z91.85 Personal history of military service | CPT/HCPCS: 99212 ==

== ENCOUNTER 2024-03-23 15:28 | Outpatient (AMB) | payer OTHER, SELFPAY ==
[2024-03-23 15:39] VITALS: BMI 34.4
--- NOTE | 2024-03-23 15:39 | A.OFFVIS_ITS ---
Vital Signs 03/23/24 15:39 Height 5 ft 6 in Weight 213 lb BMI 34.4 Intake Visit Reasons: OV- R wrist 6 WK follow up Intake Note: Christiano 33 yr old male presents today for his follow up visit for his Right wrist pain, S/P fall DOI: ~11/09/23. States he is doing well and improving with O.T. He is able to do some heavy lifting however still has pain when attempting to do a push up. Allergies No Known Allergies Allergy (Verified 03/23/24 15:44) HPI HPI OV- R wrist 6 WK follow up: Details: Christiano is a 33 year old right hand dominant man who returns to discuss his right wrist pain, S/P fall, DOI: ~11/09/23. 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 His chief complaint at this point is that he has pain when putting his wrist in push-up position and under load. He says he has improved his heavy lifting ability without pain, which he is happy about. He has been attending OT hand therapy, and has discontinued his splint. He says he had difficulty attending OT due to caring for his child and over the holidays, and has only been able to attend twice since his last appointment. [facility] Medical History (Updated 12/22/23 @ 18:03 by Kelli Andrew [facility]) Heart burn Eczema Surgical History Hx of tonsillectomy Family History (Updated 12/22/23 @ 11:55 by Jeane Black MA) Mother No problems noted. Father High blood pressure Maternal Grandfather Throat cancer Social History Household Members: None Both parents involved: No Caregiver staying overnight: No Housing: Apartment Are you a primary career development director to a significant other at home: No Do you presently have visiting nurse or other home services: No 75 years or older and lives alone: No Alcohol intake: current Alcohol intake frequency: a few times a week Alcohol type: beer Patient Tobacco Use Status: Never used Tobacco e-Cigarette/Vaping Use: Never Used Second Hand Smoke Exposure: No service: Yes Current occupational status: employed Current occupation: Cognitive needs: No Hearing needs: No Vision needs: No Physical Exam Vital Signs: BMI result Body Mass Index 34.4 Extrem Other: Evaluation of Right Upper Extremity: The patient is alert, oriented, and in no acute distress No tenderness over the distal radius, DRUJ, or distal ulna DRUJ stable on exam No tenderness over the snuffbox or scaphoid tubercle Symmetrical prono-supination Symmetrical wrist flexion & extension, however he has pain in the dorsal aspect of his wrist when bringing his right wrist into full extension. Again this is his chief complaint. He can make a tight fist with good strength and no pain Assessment & Plan Assessment & Plan (1) Right wrist pain: Code(s): M25.531 - Pain in right wrist Category: Medical Plan Assessment & Plan: 1. Right wrist pain, S/P fall DOI: ~11/09/23 I educated her about this condition His primary complaint is of pain when loading the wrist while in full extension, such as push-ups or activities such as opening jars I recommend he continue with activity modification & OT hand therapy I discussed activity modification, he should work on stretching & strengthening exercises at home He will continue to attend OT hand therapy to work on stretching, strengthening, and normalizing function, with the goal of being able to perform push-up exercises without pain He is the member of the [employer]. He was given a note for work to return on light duty, increasing to a 25lb weight limit with his RUE, and time off for OT hand therapy for the next 6 weeks. He will follow up in 5-6 weeks to see how he is doing and hopefully return him to full duty at work. Scribed for Cinda Slaughter MD by Chilo Huggins, medical donation professional, on 03/23/24 at 3:50 PM, EST. Coding Level of Care Code Est Pt Level 3 (56864) Diagnoses Right wrist pain M25.531
--- OUTSIDE RECORDS SUMMARY | 2024-03-23 19:17 | XMS_ITS | Continuity of Care Document ---
Author Name [facility] Organization [facility] Care Team Providers Care Learning Facilitator Name Role Phone [facility] Unavailable Unavailable Problems Combined list of problems from Department of Defense and Veterans Affairs facilities. It does not include entries that were removed or entered in error. Problem Status Onset Date Problem Type Date of Resolution Comments Source Allergic contact dermatitis due to cosmetics Active 12/13/2016 Condition DoD exposure to molds Inactive 07/29/2015 Condition DoD visit for: services physical Inactive 05/20/2013 Condition DoD dermatophytosis tinea pedis Inactive 11/03/2012 Condition DoD visit for: issue repeat prescription Inactive Condition DoD visit for: issue repeat prescription for medication Inactive Condition DoD visit: ears/hearing exam for hearing conservation, treatment Inactive Condition DoD visit for: occupational health / fitness exam Inactive Condition DoD visit for: screening exam pulmonary tuberculosis Inactive Condition DoD taking high-risk medication Active Condition DoD tuberculosis latent Active Condition Do D Patient Education - Action Plan Inactive Condition DoD refractive error Active Condition DoD visit for: services physical accession Active Condition DoD Medications Combined list of outpatient medications from Department of Defense and Veterans Affairs facilities.Medications provided include 1) outpatient medications from the last 15 months, and 2) patient-reported medications. Medication Details Route Status Patient Instructions Prescription Expires Prescription Number Last Dispense Date Ordering Provider Order Date Order Qty Source betamethaso ne valerate 0.1% topical cream betameth asone valerate 0.1% topical cream Start Date: 01/07/21 Status: Ordered Ordered No Facilit y Access MODERNA COVID-19 VACCINE (EUA) (COVID-19 vaccine, mRNA, [id number], LNP-S (Moderna)/P F), 100MCG/0.5, MODERNA COVID-19 VACCINE (EUA) (COVID-1 9 vaccine, mRNA, [id number], LNP-S (Moderna )/PF), 100MCG/0 .5, Start Date: 03/09/21 Status: Ordered Ordered No Facilit y Access Allergies, Adverse Reactions, Alerts Combined list of allergies from Department of Defense and Veterans Affairs facilities. It does not include entries that were removed or entered in error. Substance Category Reaction Severity Reaction type Status Date Reported Comments Source No Known Allergies Drug allergy (disorder) active 12/16/2012 [facility] Immunizations Combined list of available immunizations from the Department of Defense and Veterans Affairs facilities. Immunization Series Date Given Administered By Site Reaction Lot Number CVX Code Drug Co Founder And Director Status Comments Source COVID Vaccine Moderna 2020 TRS 207 complet ed COVID Vaccine Moderna 03/08/21 Given Ambulat ory Pharmac y COVID-19, mRNA, LNP-S, PF, 100 mcg or 50 mcg dose 2020 BOGDASARIAN, () Not Given COVID-19, mRNA, LNP-S, PF, 100 mcg or 50 mcg dose DoD SARS-COV-2 (COVID-19) vaccine, mRNA, spike protein, LNP, preservative free, 100 mcg or 50 mcg dose 0 2020 Unknown, Provider TRS 207 Clarify, Inc, SynapticMash. (MOD) complet ed SARS-COV- 2 (COVID-19 ) vaccine, mRNA, spike protein, LNP, preservat evelio free, 100 mcg or 50 mcg dose DoD influenza, injectable, quadrivalent 2020 [id number] 158 GlaxoSmithKli ne complet ed influenza , injectabl e, quadrival ent 12/31/20 Given Ambulat ory Pharmac y influenza, injectable, quadrivalent, contains preservative 8 2020 [id number] 158 [place] (SKB) complet ed influenza , injectabl e, quadrival ent, contains preservat evelio DoD COVID Vaccine Pfizer 2020 [id number] 208 PFIZER complet ed COVID Vaccine Pfizer 07/07/20 Given Ambulat ory Pharmac y SARS-COV-2 (COVID-19) vaccine, mRNA, spike protein, LNP, preservative free, 30 mcg/0.3mL dose 2 2020 [id number] 208 Pfizer, Inc (PFR) complet ed SARS-COV- 2 (COVID-19 ) vaccine, mRNA, spike protein, LNP, preservat evelio free, 30 mcg/0.3mL dose DoD COVID Vaccine Pfizer 2020 [id number] 208 PFIZER complet ed COVID Vaccine Pfizer 06/16/20 Given Ambulat ory Pharmac y SARS-COV-2 (COVID-19) vaccine, mRNA, spike protein, LNP, preservative free, 30 mcg/0.3mL dose 1 2020 [id number] 208 Pfizer, Inc (PFR) complet ed SARS-COV- 2 (COVID-19 ) vaccine, mRNA, spike protein, LNP, preservat evelio free, 30 mcg/0.3mL dose DoD influenza, injectable, quadrivalent- pf 2019 [id number] 077 150 Seqirus complet ed influenza , injectabl e, quadrival ent-pf 01/30/20 Given Ambulat ory Pharmac y Influenza, injectable, quadrivalent, preservative free 1 2019 [id number] 077 150 Seqirus (SEQ) complet ed Influenza , injectabl e, quadrival ent, preservat evelio free DoD influenza, injectable, quadrivalent- pf 2018 [id number] 520 150 Seqirus complet ed influenza , injectabl e, quadrival ent-pf 12/01/18 Given Ambulat ory Pharmac y Influenza, injectable, quadrivalent, preservative free 6 2018 [id number] 520 150 Seqirus (SEQ) complet ed Influenza , injectabl e, quadrival ent, preservat evelio free DoD influenza, injectable, quadrivalent- pf 2017 [id number] 150 GlaxoSmithKli ne complet ed influenza , injectabl e, quadrival ent-pf 01/01/18 Given Ambulat ory Pharmac y Influenza, injectable, quadrivalent, preservative free 5 2017 [id number] 150 SmithKline (SKB) complet ed Influenza , injectabl e, quadrival ent, preservat evelio free DoD Finnish Encephalitis IM 2017 [id number] 3E 134 Valneva complet ed Finnish Encephali tis IM 03/28/17 Given Ambulat ory Pharmac y Finnish Encephalitis vaccine for intramuscular administratio n 3 2017 [id number] 3E 134 Valneva (LARY) complet ed Finnish Encephali tis vaccine for intramusc ular administr ation [facility] Human Papillomaviru s 9-valent vaccine 2016 [id number] 165 NodePing & Stratio Technology Inc complet ed Human Papilloma virus 9-valent vaccine 03/14/17 Given Ambulat ory Pharmac y Human Papillomaviru s 9-valent vaccine 3 2016 [id number] 165 Merck (MSD) complet ed Human Papilloma virus 9-valent vaccine DoD influenza, seasonal, injectable-pf 2016 [id number] 140 GlaxoSmithKli ne complet ed influenza , seasonal, injectabl e-pf 11/25/16 Given Ambulat ory Pharmac y Influenza, seasonal, injectable, preservative free 4 2016 [id number] 140 Swift Navigation (SKB) complet ed Influenza , seasonal, injectabl e, preservat evelio free DoD Finnish Encephalitis IM 2016 [id number] 7E 134 Valneva complet ed Finnish Encephali tis IM 03/25/16 Given Ambulat ory Pharmac y Finnish Encephalitis vaccine for intramuscular administratio n 2 2016 [id number] 7E 134 Valneva (LARY) complet ed Finnish Encephali tis vaccine for intramusc ular administr ation DoD Finnish Encephalitis IM 2015 [id number] 4E 134 Valneva complet ed Finnish Encephali tis IM 01/29/16 Given Ambulat ory Pharmac y Finnish Encephalitis vaccine for intramuscular administratio n 1 2015 [id number] 4E 134 Intercell Biomedical (INT) complet ed Finnish Encephali tis vaccine for intramusc ular administr ation DoD influenza, seasonal, injectable-pf 2015 [id number] 140 Seqirus complet ed influenza , seasonal, injectabl e-pf 12/28/15 Given Ambulat ory Pharmac y Influenza, seasonal, injectable, preservative free 1 2015 [id number] 140 Seqirus (SEQ) comple t ed Influenza , seasonal, injectabl e, preservat evelio free DoD anthrax vaccine 2015 [id number] 24 Emergent Biosolutions complet ed anthrax vaccine 05/20/15 Given Ambulat ory Pharmac y anthrax vaccine 2 2015 [id number] 24 Emergent [employer] [place] ([facility]) complet ed anthrax vaccine DoD typhoid Vi capsular polysaccharid e vac 2015 [id number] 101 sanofi pasteur complet ed typhoid Vi capsular polysacch aride vac 03/21/15 Given Ambulat ory Pharmac y anthrax vaccine 2015 [id number] 24 Emergent Biosolutions complet ed anthrax vaccine 03/21/15 Given Ambulat ory Pharmac y anthrax vaccine 1 2015 [id number] 24 [employer]gent [employer] [place] (MIP) complet ed anthrax vaccine DoD typhoid Vi capsular polysaccharid e vaccine 1 2015 [id number] 101 Sanofi Pasteur (PMC) complet ed typhoid Vi capsular polysacch aride vaccine DoD influenza, seasonal, injectable-pf 2014 [id number] 140 CSL Behring complet ed influenza , seasonal, injectabl e-pf 12/09/14 Given Ambulat ory Pharmac y Human Papillomaviru s,quadrivalen t(HPV4) 2014 [id number] 62 Merck & Company Inc complet ed Human Papilloma virus,michaela drivalent (HPV4) 12/09/14 Given Ambulat ory Pharmac y human papilloma virus vaccine, quadrivalent 0 2014 [id number] 62 NodePing (MSD) complet ed human papilloma virus vaccine, quadrival ent DoD Influenza, seasonal, injectable, preservative free 2 2014 [id number] 140 CS Biotherapies, Inc. (CSL) complet ed Influenza , seasonal, injectabl e, preservat evelio free DoD influenza, live, intranasal,qu adrivalent 2013 [id number] 149 Medimmune Inc comple t ed influenza , live, intranasa l,quadriv alent 01/11/14 Given Ambulat ory Pharmac y influenza, live, intranasal, quadrivalent 1 2013 [id number] 149 MedIPostBeyond, Inc. (MED) complet ed influenza , live, intranasa l, quadrival ent DoD hepatitis A adult vaccine 2013 [id number] 52 GlaxoSmithKli ne complet ed hepatitis A adult vaccine 07/14/13 Given Ambulat ory Pharmac y Human Papillomaviru s,quadrivalen t(HPV4) 2013 [id number] 62 Merck & Company Inc complet ed Human Papilloma virus,michaela drivalent (HPV4) 07/14/13 Given Ambulat ory Pharmac y hepatitis A vaccine, adult dosage 2 2013 [id number] 52 [facility] (SKB[facility] complet ed hepatitis A vaccine, adult dosage DoD human papilloma virus vaccine, quadrivalent 0 2013 [id number] 62 Merck (MSD) complet ed human papilloma virus vaccine, quadrival ent DoD hepatitis A adult vaccine 2012 [id number] 52 GlaxoSmithKli ne complet ed hepatitis A adult vaccine 10/21/12 Given Ambulat ory Pharmac y hepatitis A vaccine, adult dosage 1 2012 [id number] 52 Smithine (SKB) complet ed hepatitis A vaccine, adult dosage DoD measles virus vaccine 0 2012 05 () Not Given measles virus vaccine DoD rubella virus vaccine 0 2012 06 () Not Given rubella virus vaccine DoD mumps virus vaccine 0 2012 07 () Not Given mumps virus vaccine DoD varicella virus vaccine 0 2012 21 () Not Given varicella virus vaccine DoD tetanus, diphtheria, acellular pertu is 2012 [id number] 115 GlaxoSmithKli ne complet ed tetanus, diphtheri a, acellular pertussis 10/15/12 Given Ambulat ory Pharmac y meningococcal A,C,Y,W-135 (MCV4P) 2012 [id number] 114 sanofi pasteur complet ed meningoco ccal A,C,Y,W-1 35 (MCV4P) 10/15/12 Given Ambulat ory Pharmac y tuberculin purified protein derivative 2012 [id number] 96 [facility] complet ed tuberculi n purified protein derivativ e 10/15/12 Given Ambulat ory Pharmac y adenovirus vaccine, live 2012 [id number] 2 143 Teva Pharmaceutica complet ed adenoviru s vaccine, live 10/15/12 Given Ambulat ory Pharmac y poliovirus vaccine, inactivated 2012 H1354 10 sanofi pasteur complet ed polioviru s vaccine, inactivat ed 10/15/12 Given Ambulat ory Pharmac y poliovirus vaccine, inactivated 1 2012 H1354 10 Sanofi Pasteur (PMC) complet ed polioviru s vaccine, inactivat ed DoD meningococcal polysaccharid e (groups A, C, Y and W-135) diphtheria toxoid conjugate vaccine (MCV4P) 1 2012 [id number] 114 Sanofi Pasteur (PMC) complet ed meningoco ccal polysacch aride (groups A, C, Y and W-135) diphtheri a toxoid conjugate vaccine (MCV4P) DoD tetanus toxoid, reduced diphtheria toxoid, and acellular pertu is vaccine, adsorbed 1 [id number] [place], [place] [address] (SKB) complet ed tetanus toxoid, reduced diphtheri a toxoid, and acellular pertussis vaccine, adsorbed DoD Adenovirus, type 4 and type 7, live, oral 1 2012 [id number] 2 143 [facility] (BRR) complet ed Adenoviru s, type 4 and type 7, live, oral DoD measles virus vaccine 0 2012 05 () Not Given measles virus vaccine DoD hepatitis B vaccine, unspecified formulation 0 2012 45 () Not Given hepatitis B vaccine, unspecifi ed formulati on DoD Results Combined list of recent chemistry, hematology and other laboratory results from Department of Defense and Veterans Affairs, ranging from 15 months to all on record, depending upon the facility. Order Name Results Value Reference Range Date Interpretation Specimen Comments Source Infectio us Disease HIV-1/O/2 Non-Reac tive 1 (05/30/23 10:43 AM) 05/29 N Interpretiv e Data: INTERPRETAT ION: This method is a screening procedure for the detection of HIV p24 Antigen and Antibodies to HIV-1, including Group O, and/or HIV-2. NON-REACTIV E: HIV-1 antigen and HIV-1 / HIV-2 antibodies were not detected. No laboratory evidence of HIV infection. A negative test result does not exclude the possibility of exposure to or infection with HIV. HIV antibodies and/or p24 antigen may be undetectabl e in some stages of the infection and in some clinical conditions. If acute HIV infection is suspected, consider submitting another specimen to a reference laboratory for HIV-1 RNA. SCREEN REACTIVE - CONFIRMATIO N TO FOLLOW: Possible presence of HIV-1antibo dies, HIV-2 antibodies and/or HIV-1 p24 antigen. Specimen will reflex to the confirmatio n testing that fulfills the Center for Disease Control and Prevention' s HIV diagnostic algorithm. Refer to [facility] Lab Guide for additional information : [email or web address] x Testing performed by Faheem rubio [facility] Rep[facility] Sample Received (05/30/23 10:43 AM) 05/29 N [facility] Vital Signs Combined list of inpatient and outpatient Vital Signs from Department of Defense and Veterans Affairs, ranging from 12 months to all on record, depending upon the facility. Vital Sign Value Date Comments Source Systolic Blood Pressure 122mm[Hg] 05/30/2023 12:21:00 Ambulatory Pharmacy Diastolic Blood Pressure 66mm[Hg] 05/30/2023 12:21:00 Ambulatory Pharmacy BP Site 05/30/2023 12:21:00 [facility] Mean Arterial Pressure, Calc 85mm[Hg] 05/30/2023 12:21:00 Ambulatory P harmacy Respiratory Rate 79br/min 05/30/2023 12:21:00 Ambulatory Pharmacy Encounters Combined list of: 1) Encounters from Department of Veterans Affairs facilities going back up to thelast 18 months. 2) Encounters from the Department of Defense facilities going back up to 280 months. Location Location Details Encounter Type Encounter Number Reason For Visit Attending Provider ADM Date DC [place] [address](Opt ometry Clinic [facility]) OUTPATIENT [id number] DAYA WILLIAM 10/20 Released w/o Limitations [facility] [place] [address](O ptometr y Clinic [facility] [place] [address]([facility] upational Medicine [facility]) OUTPATIENT [id number] Notes Entered by: RENATA HALL 22 Oct 2012805 ------- ------- ------- ------- -- Initial TB EDU BMT SOBIA FRY 10/22 Released w/o Limitations [facility] [place] [address](O ccupati onal Medicin e [facility] [place] [address]([facility] upational Medicine [facility]) OUTPATIENT [id number] initial tb appt bmt TAYLOR ROSEY M 10/29 Released w/o Limitations [facility] [place] [address](O ccupati onal Medicin e [facility]) [place] [address](DARCY Bocanegra) OUTPATIENT [id number] Notes Entered by: JACQUELINE BRADLEY 03 Nov 2012 0818 ------- ------- ------- ------- -- Rash on feet DAVID BRADLEY 11/03 Released w/o Limitations [facility] [place] [address](Jessica Bocanegra) [place] [address]([facility]) OUTPATIENT [id number] refill appt bmt RAMIRO CHRISTOPHER Jagruti 11/30 Released w/o Limitations [facility] [place] [address](O ccupati onal Medicin e [facility]) [place]([facility]) OUTPATIENT [id number] Notes Entered by: ALBIN DELACRUZ 22 Dec 2012 1140 ------- ------- ------- ------- -- Follow- up on INH tx. DOREEN CASAREZ 12/22 Released w/o Limitations [place]([facility]) [place]al [facility]) OUTPATIENT [id number] [facility] KIKI NAVARRETE 01/21 Released w/o Limitations [place] Occupat ional Health) [place] Hearing Conservat ion) OUTPATIENT [id number] AUDIO SCREENI GRACIELA PLASCENCIA 01/22 Released w/o Limitations [place] Hearing Conserv ation) [place] OUTPATIENT [id number] Notes Entered by: LUPE GAGNON 26 Jan 2013 1200 ------- ------- ------- ------- -- RIF REFILL #2 OF 4 DOREEN CASAREZ 01/26 Released [place]/o Limitations [place]) [place] [employer] ) OUTPATIENT [id number] Notes Entered by: MONICA ZEPEDA 02 Mar 2013 1120 ------- ------- ------- ------- -- RIF Refill #3 of 4 JOSE RUBIO 03/02 Released w/o Limitations [place]([address]) [place] [employer] ) OUTPATIENT [id number] Notes Entered by: LUPE GAGNON 06 Apr 2013 1136 ------- ------- ------- ------- -- RAH Zelaya REFILL #4 OF 4 DOREEN CASAREZ JIMMY 04/06 Released w/o Limitations [place]([address]) [employer](F light Medicine [employer]) OUTPATIENT [id number] [facility] KIKI CHENG 05/20 Released w/o Limitations [employer] [place] DALY, [place] (Flight Medicin e [employer]) [employer](P [facility] Health Assessmen t) TELE CONSULT [id number] Notes Entered by: OBDULIA WALKER 09 May 2014 0802 ------- ------- ------- ------- -- EBENEZER Stanley 05/09 [employer] [place] D[place], [place] [employer] (Preven tive Health Assessm ent) [employer](F light Medicine [employer]) OUTPATIENT [id number] [facility] KIKI Robert 05/12 Released w/o Limitations [employer] [place] DALY, [place] (Flight Medicin e [employer]) [employer](Jessica Albarran [facility] Team D) OUTPATIENT [id number] edgardo PHELANMANOJ KERI 05/19 Released w/o Limitations [employer] [employer] ([facility] Team D) [employer] [employer](F light Medicine [employer]) OUTPATIENT [id number] TB follow up NIMA AGUILAR 03/16 Released w/o Limitations [employer] [employer] (Flight Medicin e [employer]) [employer] [employer](F light Medicine [employer]) OUTPATIENT [id number] OHA ASM JEMMA NEWMAN V 03/20 Released w/o Limitations [employer] [employer] (Flight Medicin e [employer]) [employer] [employer](M ental Health [employer]) OUTPATIENT [id number] [facility] ent Record Review RICHARD SAAVEDRA 03/20 Released w/o Limitations [employer] [employer] (Mental Health [employer]) [employer] [employer]([facility]) OUTPATIENT [id number] BRIT Wong 03/20 Released w/o Limitations [employer] [employer] ([facility]) [employer] [employer]( ental Health [employer]) OUTPATIENT [id number] HERBERT JALEN More 03/20 Released w/o Limitations [employer] [employer] (Mental Health [employer]) [employer] [employer]([facility] Team C) TELE CONSULT [id number] Notes Entered by: Jagruti MORENO 27 Mar 2015 1533 ------- ------- ------- ------- -- BA Garland 03/27 Referred for Appointment [employer] [employer] ([facility] Team C) Theater Facility OUTPATIENT [id number] Theater Provider 06/04 Released w/o Limitations Theater [facility] [employer] [employer](P reventive Health Assessmen t) OUTPATIENT [id number] admin BURTON JIMENEZ 07/24 Released w/o Limitations [employer] [employer] (Preven tive Health Assessm ent) [facility] OUTPATIENT [id number] Theater Provider 07/28 Released w/o Limitations Theater [facility] [employer] [employer]([facility]) OUTPATIENT [id number] BRIT Gonzalez 11/30 Released w/o Limitations [employer] [employer] ([facility]) [employer] [employer](B ase Operation al Medical Cell) OUTPATIENT [id number] SATHISH Frances 04/10 Released w/o Limitations [employer] [employer] (Base Operati onal Medical Cell) [employer] [employer]([facility] Team B) OUTPATIENT [id number] MARGARITO DUBOIS 05/31 Released w/o Limitations [employer] [employer] ([facility] Team B) [employer] [employer]) TELE CONSULT [id number] Notes Entered by: SABINO SEPULVEDA 19 Jun 2016 0828 ------- ------- ------- ------- -- [facility] SABINO SEPULVEDA 06/19 Other Not Elsewhere Classified [employer] [employer] (Base Operati onal Medical Cell) [employer] [employer](I n and Out Processin g [facility]) TELE CONSULT [id number] Notes Entered by: SADA PEDERSON 30 Jul 2016 1125 ------- ------- ------- ------- -- Outproc ess- PCM to Shy SADA PEDERSON 07/30 Other Not Elsewhere Classified [employer] Pending sale to [employer] [employer] (In and Out Process ing [place]) [employer] [place] [employer](B ase Operation al [employer] Cell) OUTPATIENT [id number] BENNETT La\ BRIT ARAUZ 08/01 Released w/o Limitations [facility] [place] [employer] (Base Operati onal Medical Cell) [employer] [place] [employer](B ase Operation al [employer]) OUTPATIENT [id number] Notes Entered by: SIVAN DAVIDSON 06 Aug 2016 1108 ------- ------- ------- ------- -- Annual Triserv ice [facility] MARGRAITO PIEDRA 08/06 Released w/o Limitations [employer] [facility], [place] [employer] (Base Operati onal Medical Cell) [place]([facility] D Team) TELE CONSULT [id number] Notes Entered by: KAYLIE HOLM 23 Sep 2016 0908 ------- ------- ------- ------- -- Possibl e food itzeli adal Referjuvenal d by ER [id number] GILBERT SALINAS 09/23 [place] ([facility] D Team) [place]([facility] Medical In-Out Processin g) TELE CONSULT [id number] Notes Entered by: JENNY CAIN I 07 Nov 2016 1105 ------- ------- ------- ------- -- in-[facility] JENNY Abernathy I 11/07 Referred for Appointment [facility] ( Medical In-Out Process ing) [facility] Optometry Clinic) OUTPATIENT [id number] SHAYLA KUMAR 11/07 Released w/o Limitations [facility] ( Optomet ry Clinic) [facility]) OUTPATIENT [id number] Notes Entered by: JACQUELINE FRANZ 13 Nov 2016 1434 ------- ------- ------- ------- -- IN PROCESS ING TALYA FRANZ 11/13 Released w/o Limitations [facility] ([facility]) [facility] A Team) OUTPATIENT [id number] Rash on back, spreadi ng to chest (red bumps) x 1 month (Beckie Lopez) CARL GEORGE 12/12 Released w/o Limitations [facility] ([facility] A Team) [facility]) OUTPATIENT [id number] Notes Entered by: JACQUELINE FRANZ 14 Mar 2017 0811 ------- ------- ------- ------- -- AUDIOGR AM TALYA FRANZ 03/13 Released w/o Limitations [facility] ( [facility]) [facility]) TELE CONSULT [id number] Notes Entered by: JACQUELINE FRANZ 14 Mar 2017 0812 ------- ------- ------- ------- -- MADATOR Y LABS FOR WPID [id number] TALYA FRANZ 03/13 Referred for Appointment [facility] ( [facility]) OUTPATIENT [id number] OHA 465A JANUSZ LAMBERT 03/26 Released w/o Limitations [facility] ([facility]) [facility] D Team) TELE CONSULT [id number] Notes Entered by: Sera COFFMAN 09 Apr 2017 0719 ------- ------- ------- ------- -- SOBIA VIZCARRA 04/08 Referred- Emergency Department [facility] ([facility] D [facility]) [facility] D Team) OUTPATIENT [id number] ER f/u , Spraine d L ankle px 05/24, cant put full pressur e on foot OBDULIA FUNKOINETTE 04/09 Released with Work/Duty Limitations [facility] ([facility] D [facility]) [facility]) TELE CONSULT [id number] Notes Entered by: Conor LLANES 16 Apr 2017 1026 ------- ------- ------- ------- -- Profile related QUINN FERNÁNDEZ 04/16 Other Not Elsewhere Classified [facility] ([facility]) [facility]) OUTPATIENT [id number] f/u L foot/pr ofile CRIS WESTFALL 05/23 Released w/o Limitations [facility] ([facility]) [facility]) OUTPATIENT [id number] Notes Entered by: Lupe HAYES 05 Aug 2017 1556 ------- ------- ------- ------- -- BENNETT Barahona/NIMCO CHAPPELL 08/05 Released w/o Limitations [facility] ([facility]) [facility]) OUTPATIENT [id number] Notes Entered by: Garcia COFFMAN 06 Aug 2017 0950 ------- ------- ------- ------- -- TRI SERVICE GUILLAUME/CRIS DAMICO 08/06 Released w/o Limitations [facility] ([facility]) [facility]) TELE CONSULT [id number] Notes Entered by: BETSEY OKEEFE 18 Mar 2018 1352 ------- ------- ------- ------- -- [place] Labs JANAE OKEEFE 03/18 Referred for Appointment [facility] ([facility]) [place] [facility] OUT[facility] [id number] Notes Entered by: IZABELA JAIN 18 Mar 2018 1406 ------- ------- ------- ------- -- AUDIOGR AM JERALD COLEMAN TYCOCATRACHO 03/18 Released w/o Limitations [facility] ( [facility]) OUTPATIENT [id number] OHA LEONIDES MAHMOOD 03/18 Released w/o Limitations [facility] ([facility]) [facility]) OUTPATIENT [id number] 9 !1600 sleep study [place] 04/01 Released w/o Limitations [facility] ([facility]) [facility]) OUTPATIENT [id number] Hypertr ophy of tonsils CELIA OSORIO 04/07 Released w/o Limitations [facility] ([facility] A Team) TELE CONSULT [id number] Notes Entered by: Mayte PARISH 13 Apr 2018 0621 ------- ------- ------- ------- -- LAB [place] 04/12 [facility] ([facility]) [facility] BG) OUTPATIENT [id number] Notes Entered by: EDMAR VALDES 11 May 2018 1446 ------- ------- ------- ------- -- *spike in glucose during PT test [place] 05/11 Released w/o Limitations [facility] ([facility]) [facility]) OUTPATIENT [id number] GEOVANNY MOORE 09/21 Released w/o Limitations [facility] ([facility]) [facility]) OUTPATIENT [id number] RASH (GROIN) X 2 DAVIN JONES 09/22 Released w/o Limitations [facility] ([facility]) [facility]) OUTPATIENT [id number] jock DAVIN Haile 09/28 Released w/o Limitations [facility] ([facility]) [facility]) OUTPATIENT [id number] SHPE SHAHRAM BAJWA 10/06 Released w/o Limitations [facility] ([facility]) [facility]) OUTPATIENT [id number] Audiogr am SHPE ANIBAL GRAVES 10/07 Released w/o Limitations [facility] ( [facility]) [facility]) OUTPATIENT [id number] Notes Entered by: Lupe EVANS 13 Oct 2018 0835 ------- ------- ------- ------- -- TRI SERVICE GUILLAUME/ISAÍAS WILLSON 10/12 Released w/o Limitations [facility] ([facility]) [facility]) OUTPATIENT [id number] SHPE HYUN BURROUGHS 11/19 Released w/o Limitations [facility] ( [facility]) [facility]) TELE CONSULT [id number] Notes Entered by: ANNETTE PETERS 20 Nov 2018 0904 ------- ------- ------- ------- -- JUMA Acosta 11/20 [facility] ([facility]) [facility] OUTPATIENT [id number] Notes Entered by: MAXIMINO LARES 24 Nov 2018 1545 ------- ------- ------- ------- -- PT DROPPED OFF SHPE TO BE SIGNED HYUN BURROUGHS 11/24 Released w/o Limitations [facility] ([facility]( [facility]) OUTPATIENT [id number] 6 !1430, PFT REFERRA L, HAS HAD TROUBLE BREATHI NG WHILE RUNNING [place] S 03/22 Released w/o Limitations [facility] ([facility]) [facility] D Team) OUTPATIENT [id number] SEEN 03/22 FOR PFTIAN TO BOOK FOLLOWU P 1 MONTH OUT [place] Magali 04/26 Released w/o Limitations [facility] ([facility]) [facility]) TELE CONSULT [id number] Notes Entered by: Sera OSBORNE 13 May 2019 1108 ------- ------- ------- ------- -- request ing provide rs signatu re for SHPE PPW HYUN BURROUGHS 05/13 [facility] ([facility](P [facility] Disease [facility]) OUTPATIENT [id number] jennifer ROSEY Barroso 05/18 Released w/o Limitations [facility] ([facility] [place] [address](AFN G 104 Med Sq-FM) OUTPATIENT [id number] Notes Entered by: NED MATTHEWS 11 Apr 2020 1220 ------- ------- ------- ------- -- NED TOUSSAINT 04/11 Released w/o Limitations [facility] [place] [address](A FNG 104 Med Sq-FM) [place] [address](AFN G 104 Med Sq-FM) OUTPATIENT [id number] Notes Entered by: NED MATTHEWS 04 May 2020 105 ------- ------- ------- ------- -- Post deploy to [facility] CASSIENED REBOLLEDO 05/04 Released w/o Limitations [facility] [place] [address](A FNG 104 Med Sq-[facility]) [place] [id number](AFN G 104 Med Sq-FM) OUTPATIENT [id number] Notes Entered by: NED MATTHEWS 30 Apr 202113 ------- ------- ------- ------- -- NED TOUSSAINT 04/30 Released w/o Limitations [facility] [place] [address](A FNG 104 Med Sq-FM) [place] [address](AFN G 104 Med Sq-FM) OUTPATIENT [id number] Notes Entered by: KOLBY ABDALLA 25 May 2021 0928 ------- ------- ------- ------- -- Audiogr am/[place] Jesus rodriguez/P VIKRAM/KATY FORREST 05/25 Released w/o Limitations [facility] [place] [address](A FNG 104 Med Sq-FM) 8203R-104 MDG Care Not Rendered [id number] 05/29 Discharge Disposition: Home or Self Care 8203R-1 04 MDG 8203R-104 MDG Outpatient [id number] SHAHRAM HARPER 06/04 Discharge Disposition: Home or Self Care 8203R-1 04 MDG 8203R-104 MDG Care Not Rendered [id number] 11/20 Discharge Disposition: Home or Self Care 8203R-1 04 MDG 8203R-104 MDG Care Not Rendered [id number] 01/21 Discharge Disposition: Home or Self Care 8203R-1 04 MDG 8203R-104 MDG Care Not Rendered [id number] 02/16 Discharge Disposition: Home or Self Care 8203R-1 04 MDG Procedures Combined list of: 1) Procedures from Department of [facility] not all [facility] non-surgical procedures are included; 2) All procedures from the Department of Defense facilities. Procedure Procedure Type Code Date Perfomer Comments Sourc e No data available for this section [facility] PURE TONE AUDIOMETRY (THRESHOLD); AIR ONLY 2012 DoD ADMINISTRATION OF PATIENT-FOCUSED HEALTH RISK ASSESSMENT INSTRUMENT (EG, HEALTH HAZARD APPRAISAL) WITH SCORING AND DOCUMENTATION, PER STANDARDIZED INSTRUMENT 2016 DoD BRIEF EMOTIONAL/BEHAVIORAL ASSESSMENT (EG, DEPRESSION INVENTORY, ATTENTION-DEFICIT/HY PERACTIVITY DISORDER [ADHD] SCALE), WITH SCORING AND DOCUMENTATION, PER STANDARDIZED INSTRUMENT 2016 DoD PURE TONE AUDIOMETRY (THRESHOLD); AIR ONLY 2016 DoD BRIEF EMOTIONAL/BEHAVIORAL ASSESSMENT (EG, DEPRESSION INVENTORY, ATTENTION-DEFICIT/HY PERACTIVITY DISORDER [ADHD] SCALE), WITH SCORING AND DOCUMENTATION, PER STANDARDIZED INSTRUMENT 2015 DoD NEUROPSYCHOLOGICAL TESTING (EG, [place] CARD SORTING TEST), ADMINISTERED BY A COMPUTER, WITH QUALIFIED HEALTH GROUNDSKEEPER INTERPRETATION AND REPORT 2015 DoD PSYCHIATRIC EVALUATION OF HOSPITAL RECORDS, OTHER PSYCHIATRIC REPORTS, PSYCHOMETRIC AND/OR PROJECTIVE TESTS, AND OTHER ACCUMULATED DATA FOR MEDICALDIAGNOSTIC PURPOSES 2015 DoD VIS FUNCT SCREEN,AUTOMAT/SEMI- AUTOMAT BILAT QUANT DETERM VISUAL ACUITY,OCULAR ALIGN,COLOR VISION,PSEUDOISOCHRO MAT PLATES,& FIELD VIS (MAY INC ALL/SOME SCRN DETERM FOR CONTRAST SENSITIV,VIS UND GLARE) 2014 DoD COLOR VISION EXAMINATION, EXTENDED, EG, ANOMALOSCOPE OR EQUIVALENT 2013 DoD INHALATION BRONCHIAL CHALLENGE TESTING (NOT INCLUDING NECESSARY PULMONARY FUNCTION TESTS), WITH HISTAMINE, METHACHOLINE, OR SIMILAR COMPOUNDS 2019 DoD ADMINISTRATION OF PATIENT-FOCUSED HEALTH RISK ASSESSMENT INSTRUMENT (EG, HEALTH HAZARD APPRAISAL) WITH SCORING AND DOCUMENTATION, PER STANDARDIZED INSTRUMENT 2018 DoD PURE TONE AUDIOMETRY (THRESHOLD), AUTOMATED; AIR ONLY 2018 DoD BRIEF EMOTIONAL/BEHAVIORAL ASSESSMENT (EG, DEPRESSION INVENTORY, ATTENTION-DEFICIT/HY PERACTIVITY DISORDER [ADHD] SCALE), WITH SCORING AND DOCUMENTATION, PER STANDARDIZED INSTRUMENT 2018 DoD BRIEF EMOTIONAL/BEHAVIORAL ASSESSMENT (EG, DEPRESSION INVENTORY, ATTENTION-DEFICIT/HY PERACTIVITY DISORDER [ADHD] SCALE), WITH SCORING AND DOCUMENTATION, PER STANDARDIZED INSTRUMENT 2018 DoD SIMPLE REPAIR OF SUPERFICIAL WOUNDS OF SCALP, NECK, AXILLAE, EXTERNAL GENITALIA, TRUNK AND/OR EXTREMITIES (INCLUDING HANDS AND FEET); 2.6 CM TO 7.5 CM 2018 DoD ELECTROCARDIOGRAM, ROUTINE ECG WITH AT LEAST 12 LEADS; WITH INTERPRETATION AND REPORT 2018 DoD SCREENING TEST, PURE TONE, AIR ONLY 2018 DoD PATIENT EDUCATION, NOT OTHERWISE CLASSIFIED, NON-PHYSICIAN PROVIDER, INDIVIDUAL, PER SESSION 2018 DoD ADMINISTRATION OF PATIENT-FOCUSED HEALTH RISK ASSESSMENT INSTRUMENT (EG, HEALTH HAZARD APPRAISAL) WITH SCORING AND DOCUMENTATION, PER STANDARDIZED INSTRUMENT 2017 DoD SPLINT, PREFABRICATED, WRIST OR ANKLE 2017 DoD TELE ASSESS & MGT SRV PROV QUAL NONPHYS HLTH CARE PRO TO EST PAT,PARENT,GUARD NOT ORIG REL ASSESS & MGT SRV PROV W/IN PREV 7 DAYS NOR LEAD ASSESS & MGT SRV/PX W/IN NXT 24 HR/SOON APT;5-10 MIN MED DIS 2017 DoD CRUTCHES UNDERARM, OTHER THAN WOOD, ADJUSTABLE OR FIXED, PAIR, WITH PADS, TIPS AND HANDGRIPS 2017 DoD SPIROMETRY, INCLUDING GRAPHIC RECORD, TOTAL AND TIMED VITAL CAPACITY, EXPIRATORY FLOW RATE MEASUREMENT(S), WITH OR WITHOUT MAXIMAL VOLUNTARY VENTILATION 2017 DoD PURE TONE AUDIOMETRY (THRESHOLD), AUTOMATED; AIR ONLY 2016 DoD FITTING OF SPECTACLES, EXCEPT FOR APHAKIA; MONOFOCAL 2016 DoD TELE ASSESS & MGT SRV PROV QUAL NONPHYS HLTH CARE PRO TO EST PAT,PARENT,GUARD NOT ORIG REL ASSESS & MGT SRV PROV W/IN PREV 7 DAYS NOR LEAD ASSESS & MGT SRV/PX W/IN NXT 24H/SOON APT; 11-20 MIN MED DIS 2016 DoD THERAPEUTIC, PROPHYLACTIC, OR DIAGNOSTIC INJECTION (SPECIFY SUBSTANCE OR DRUG); SUBCUTANEOUS OR INTRAMUSCULAR 2012 [facility] SCREENING TEST OF VISUAL ACUITY, QUANTITATIVE, BILATERAL 2012 [facility] Preventive Medicine Administration Of Health Risk Questionnaire Patient-Focused Preventive Medicine Administration Of Health Risk Questionnaire Patient-Focused 85291 2018 MANGO EVANS Threshold Audiogram (Pure Tone) Automated Threshold Audiogram (Pure Tone) Automated 0208T 2018 ANIBAL GRAVES Patient education, not otherwise cla ified, non-physician provider, individual, per se ion 2018 ANIBAL GRAVES [facility] Psychometric Emotional / Behavioral A e ment Psychometric Emotional / Behavioral Assessment 82938 2018 GUILHERME WILLIAM [facility] Preventive Medicine Administration Of Health Risk Questionnaire Patient-Focused Preventive Medicine Administration Of Health Risk Questionnaire Patient-Focused 96818 2018 GUILHERME WILLIAM Internet Med Svc Qual Nonphys Healthcare Prof Up To 7 Days Estab Patient Internet Med Svc Qual Nonphys Healthcare Prof Up To 7 Days Estab Patient 48446 2018 GUILHERME WILLIAM [facility] Internet Med Svc Qual Nonphys Healthcare Prof Up To 7 Days Estab Patient Internet Med Svc Qual Nonphys Healthcare Prof Up To 7 Days Estab Patient 83038 2018 GEOVANNY ARRIETA Psychometric Emotional / Behavioral A e ment Psychometric Emotional / Behavioral Assessment 56822 2018 GEOVANNY ARRIETA Preventive Medicine Administration Of Health Risk Questionnaire Patient-Focused Preventive Medicine Administration Of Health Risk Questionnaire Patient-Focused 77258 2018 GEOVANNY ARIRETA Audiogram (Screening) Audiogram (Screening) 08849 2018 LEONIDES MAHMOOD [facility] Visual Function Screening Visual Function Screening 40591 2018 LEONIDES MAHMOOD Patient education, not otherwise cla ified, non-physician provider, individual, per se ion 2018 JERALD COLEMAN Threshold Audiogram (Pure Tone) Automated Threshold Audiogram (Pure Tone) Automated 0208T 2018 JERALD COLEMAN Preventive Medicine Administration Of Health Risk Questionnaire Patient-Focused Preventive Medicine Administration Of Health Risk Questionnaire Patient-Focused 03718 2017 NIMCO HAYES [facility] Internet Med Svc Qual Nonphys Healthcare Prof Up To 7 Days Estab Patient Internet Med Svc Qual Nonphys Healthcare Prof Up To 7 Days Estab Patient 16173 2017 NIMCO HAYES Splint, prefabricated, wrist or ankle 2017 CRIS WESTFALL [facility] Non-Physician Phone Call To Patient/Provider Brief (5-10min) Non-Physician Phone Call To Patient/Provider Brief (5-10min) 35576 2017 QUINN FERNÁNDEZ [facility] Spirometry Spirometry 74909 2017 JANUSZ LAMBERT Threshold Audiogram (Pure Tone) Automated Threshold Audiogram (Pure Tone) Automated 0208T 2016 BETO FRANZ Patient education, not otherwise cla ified, non-physician provider, group, per se ion 2016 BETO FRANZ [facility] Fitting Monofocal Except For Aphakia [facility] Fitting Monofocal Except For Aphakia 45382 2016 SHAYLA RICH Ophthalmological New Patient Start Comprehensive Care Ophthalmological New Patient Start Comprehensive Care 36230 2016 SHAYLA RICH Determination Of Refractive State Determination Of Refractive State 19723 2016 SHAYLA RICH Non-Physician Phone Call To Pt/Provider Intermed (11-20 min) Non-Physician Phone Call To Pt/Provider Intermed (11-20 min) 05339 2016 GILBERT SALINAS [facility] Preventive Medicine Administration Of Health Risk Questionnaire Patient-Focused Preventive Medicine Administration Of Health Risk Questionnaire Patient-Focused 47400 2016 MARGARITO PIEDRA [facility] Preventive Medicine Administration Of Health Risk Questionnaire Patient-Focused Preventive Medicine Administration Of Health Risk Questionnaire Patient-Focused 46117 2016 BRIT ARAUZ [facility] Psychometric Emotional / Behavioral A e ment Psychometric Emotional / Behavioral Assessment 05367 2016 BRIT ARAUZ [facility] Threshold Audiogram (Pure Tone) Threshold Audiogram (Pure Tone) 36190 2016 SATHISH HASSAN [facility] Psychometric Emotional / Behavioral A e ment Psychometric Emotional / Behavioral Assessment 57586 2015 BRIT ARAUZ [facility] Psychometric Neuropsych Testing Battery Admin By Computer Psychometric Neuropsych Testing Battery Admin By Computer 01686 2015 KOLTONJALEN [facility] Psychiatric Diagnostic Evaluation Review of Records and Reports Psychiatric Diagnostic Evaluation Review of Records and Reports 54382 2015 KOLTONJALEN [facility] Visual Function Screening Visual Function Screening 71519 2014 KIKI DOS SANTOS [facility] Threshold Audiogram (Pure Tone) Threshold Audiogram (Pure Tone) 00103 2014 KIKI DOS SANTOS [facility] Extensive Color Vision Testing Extensive Color Vision Testing 14867 2013 KIKI DOS SANTOS [facility] Threshold Audiogram (Pure Tone) Threshold Audiogram (Pure Tone) 01012 2013 KIKI DOS SANTOS [facility] Visual Function Screening Visual Function Screening 92125 2013 KIKI DOS SANTOS [facility] Threshold Audiogram (Pure Tone) Threshold Audiogram (Pure Tone) 95770 2012 GRACIELA WILDE [facility] Screening Test Of Visual Acuity, Quantitative, Bilateral Screening Test Of Visual Acuity, Quantitative, Bilateral 44277 [facility] Determination Of Refractive State Determination Of Refractive State 42474 2012 [facility] Fitting Monofocal Except For Aphakia [facility] Fitting Monofocal Except For Aphakia 71112 [facility] Pulse Oximetry With Multiple Determinations Pulse Oximetry With Multiple Determinations 51390 [facility] Spirometry Post-bronchodilator Spirometry Post-bronchodilato r 09226 [facility] Bronchial Challenge With Methacholine Bronchial Challenge With Methacholine 41366 [facility] Allergy Testing - Inhalation Bronchial Challenge With Drugs Allergy Testing - Inhalation Bronchial Challenge With Drugs 37661 [facility] Social History Combined list of available smoking, tobacco, and other social history from Department of Defense and Veterans Affairs facilities. Social History Type Response Date Comment Sourc e This section is an empty social history section. DoD Assessment and Plan Combined list of future care activities from Department of Defense and Veterans Affairs facilities (e.g., assessment and plan notes, appointments, orders, and referrals). Additional future care activities may be listed in the Plan of Care section. Result Assessment and Plan Date Source Assessment and Plan No data available for this section 03/23/2024 Ambulatory Pharmacy Functional Status Combined list of recent functional and cognitive assessments recorded at Department of Defense and Veterans Affairs ([facility]).[facility] Functional Rio Measurement (FIM) Scale: 1 = Total Assistance (Subject = 0% +), 2 = Maximal Assistance (Subject = 25% +), 3 = Moderate Assistance (Subject = 50% +), 4 = Minimal Assistance (Subject = 75% +), 5 = Supervision, 6 = Modified Rio (Device), 7 = Complete Rio (Timely, Safely). Assessment Date/Time Source Assessment Type Assessment Skill Assessment Score Assessment Details No data available for this section
== END 2024-03-23 16:03 | disposition home or self-care (01) ==
PROVIDERS: PCP Nurse Practitioner Family; Visit Provider Orthopaedic Surgery
DX: M25.531 Pain in right wrist (principal)
CPT/HCPCS: 99213

== ENCOUNTER → 2024-03-23 15:28 | Outpatient (BNVA) | payer OTHER, SELFPAY | PROVIDERS: PCP Nurse Practitioner Family; Visit Provider Orthopaedic Surgery | DX: M25.531 Pain in right wrist (principal) | CPT/HCPCS: 99212 ==

== ENCOUNTER 2024-04-23 08:21 | Outpatient (RCR) | payer OTHER, SELFPAY ==
--- NOTE | 2024-03-03 14:57 | MHC.OT.EP ---
[address] [phone] Occupational Therapy Plan of Care Patient Name: Christiano Hardy Date of Evaluation: 03/03/24 Diagnosis: R wrist pain Pain Location: dorsal side of wrist / extensor retinaculum Pain Score: 7 Pain Scale Used: Numeric (0 - 10) Aggravating Factors: weight bearing / opening jars Alleviating Factors: Avoiding weight bearing Assessment: Pt is a 33 yr. old R hand dominant male, who injured his hand in October 2023 while putting away his pool. He reports twisting his hand with force and had minimal pain (and no swelling). A few days later he noticed bearing weight into his hands it caused an increase in pain/discomfort. Pt reports bracing his R hand/wrist which helped to decrease pain. He originally went to urgent care and then was referred to Dr. Slaughter who gave him a brace to use. Pt reports having X-rays, CT scans all negative for fractures or injuries. He is in the [employer] and reports having a 15 lb weight limit. 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 Thank you once again for your referral.
== END 2024-04-23 08:57 | disposition home or self-care (01) ==
LOC: HO.OT 08:21
PROVIDERS: PCP Nurse Practitioner Family; Visit Provider Orthopaedic Surgery
DX: M25.531 Pain in right wrist (principal)
CPT/HCPCS: 97035; 97110; 97140; 97165; 97535

== ENCOUNTER 2024-04-27 15:31 | Outpatient (AMB) | payer OTHER, SELFPAY ==
[2024-04-27 15:36] VITALS: BMI 34.4
--- NOTE | 2024-04-27 15:36 | A.OFFVIS_ITS ---
Vital Signs 04/27/24 15:36 Height 5 ft 6 in Weight 213 lb BMI 34.4 Intake Visit Reasons: OV- R wrist f/u Intake Note: Christiano 33 yr old male presents today for his follow up visit for his Right wrist pain, S/P fall DOI: ~11/09/23. States he is doing well. Last visit he was given a note for work to return on light duty, increasing to a 25lb weight limit with his RUE, and time off for OT hand therapy for the next 6 weeks. Currently states he has completed O.T. He is the member of the [employer] and state he feels he is ready to return to work full duty. Allergies No Known Allergies Allergy (Verified 04/27/24 15:45) HPI HPI OV- R wrist f/u: Details: Christiano is a 33 year old right hand dominant man who returns to discuss his right wrist pain, S/P fall, DOI: ~11/09/23. He is an [employer], and has been working light duty with a 25lb weight limit. He says he is doing well, has improved, and is happy with the results of his therapy. He says he has improved his heavy lifting ability without pain, which he is happy about. He has completed OT hand therapy, and has discontinued his splint. He feels he is ready to return to full duty [facility] Medical History (Updated 12/22/23 @ 18:03 by Kelli Andrew [facility]) Heart burn Eczema Surgical History Hx of tonsillectomy Family History (Updated 12/22/23 @ 11:55 by Jeane Black MA) Mother No problems noted. Father High blood pressure Maternal Grandfather Throat cancer Social History Household Members: None Both parents involved: No Caregiver staying overnight: No Housing: Apartment Are you a primary critical care nurse to a significant other at home: No Do you presently have visiting nurse or other home services: No 75 years or older and lives alone: No Alcohol intake: current Alcohol intake frequency: a few times a week Alcohol type: beer Patient Tobacco Use Status: Never used Tobacco e-Cigarette/Vaping Use: Never Used Second Hand Smoke Exposure: No service: Yes Current occupational status: employed Current occupation: Cognitive needs: No Hearing needs: No Vision needs: No Review of Systems Const All systems reviewed & are unremarkable except as noted in HPI and below Physical Exam Vital Signs: BMI result Body Mass Index 34.4 Const General: no acute distress and alert Orientation/consciousness: patient oriented x3 Neuro General: patient oriented x3 Extrem Other: Evaluation of Upper Extremity: The patient is alert, oriented, and in no acute distress Neuro: Median, Ulnar, Radial nerves motor and sensory intact and sensation is normal to the tips of all digits Vascular: Cap refill brisk ROM: No tenderness over the distal radius, DRUJ, or distal ulna DRUJ stable on exam Symmetrical prono-supination Symmetrical wrist flexion & extension He can make a tight fist with good strength and no pain Psych Appearance: grossly normal Affect: normal affect Attitude: cooperative Assessment & Plan Assessment & Plan (1) Right wrist pain: Code(s): M25.531 - Pain in right wrist Category: Medical Plan Assessment & Plan: 1. Right wrist pain, S/P fall DOI: ~11/09/23 I educated her about this condition His primary complaint was of pain when loading the wrist while in full extension, such as push-ups or activities such as opening jars I recommend he continue with activity modification & OT hand therapy I discussed activity modification, he should work on stretching & strengthening exercises at home He has completed his course of OT hand therapy, and feels he is ready to return to work He is the member of the [employer]. He was given a note for work to return to full duty, without restrictions, effective 05/03/24. He can follow up prn Scribed for Cinda Slaughter MD by Chilo Huggins manager medical writing, on 04/27/24 at 4:00 PM, EST. Scribe Plan - Not visible on output: Scribed for Cinda Slaughter MD by Chilo Huggins manager medical writing, on [ ] at [ ], EST. Coding Level of Care Code Est Pt Level 3 (10574) Diagnoses Right wrist pain M25.531
--- OUTSIDE RECORDS SUMMARY | 2024-04-27 16:08 | XMS_ITS | Continuity of Care Document ---
Author Name [facility] Organization [facility] Care Team Providers Care Seater Assembler Name Role Phone [facility] Unavailable Unavailable Problems Combined list of problems [...] MODERNA COVID-19 VACCINE (EUA) (COVID-19 vaccine, mRNA, [id number], LNP-S (Moderna)/P F), 100MCG/0.5, MODERNA COVID-19 VACCINE (EUA) (COVID-1 9 vaccine, mRNA, [id number] 4, LNP-S (Moderna )/PF), 100MCG/0 .5, Start Date: 03/09/21 Status: Ordered Ordered No Facilit y Access Allergies, Adverse Reactions, Alerts Combined list of allergies from Department of Defense and Veterans Affairs facilities. It does not include entries that were removed or entered in error. Substance Category Reaction Severity Reaction type Status Date Reported Comments Source No Known Allergies Drug allergy (disorder) active 12/16/2012 [facility] Immunizations Combined list of available immunizations from the Department of Defense and Veterans Affairs facilities. Immunization Series Date Given Administered By Site Reaction Lot Number CVX Code Drug Divisional Merchandising Manager Status Comments Source COVID Vaccine Moderna 2020 [...] dose 0 2020 Unknown, Provider TRS 207 Hard Candy Cases, Tok3n. (MOD) complet ed SARS-COV- 2 (COVID-19 ) vaccine, mRNA, spike protein, LNP, preservat evelio free, 100 mcg or 50 mcg dose DoD influenza, injectable, quadrivalent 2020 [id number] 158 GlaxoSmithKli ne complet ed influenza , injectabl e, quadrival ent 12/31/20 Given Ambulat ory Pharmac y influenza, injectable, quadrivalent, contains preservative 8 2020 [id number] 158 [place] (SKB) complet ed influenza , injectabl e, quadrival ent, contains preservat evelio DoD COVID Vaccine Pfizer 2020 [id number] PFIZER complet ed COVID Vaccine Pfizer 07/07/20 Given Ambulat ory Pharmac y SARS-COV-2 (COVID-19) vaccine, mRNA, spike protein, LNP, preservative free, 30 mcg/0.3mL dose 2 2020 [id number] 208 Pfizer, Inc (PFR) complet ed SARS-COV- 2 (COVID-19 ) vaccine, mRNA, spike protein, LNP, preservat evelio free, 30 mcg/0.3mL dose DoD COVID Vaccine Pfizer 2020 [id number] 208 PFIZER complet ed COVID Vaccine Pfizer 06/16/20 Given Ambulat ory Pharmac y SARS-COV-2 (COVID-19) vaccine, mRNA, spike protein, LNP, preservative free, 30 mcg/0.3mL dose 1 2020 [id number] 208 Pfizer, Inc (PFR) complet ed SARS-COV- 2 (COVID-19 ) vaccine, mRNA, spike protein, LNP, preservat evelio free, 30 mcg/0.3mL dose DoD influenza, injectable, quadrivalent- pf 2019 [id number] 150 Seqirus complet ed influenza , injectabl e, quadrival ent-pf 01/30/20 Given Ambulat ory Pharmac y Influenza, injectable, quadrivalent, preservative free 1 2019 [id number] 077 150 Seqirus (SEQ) complet ed Influenza , injectabl e, quadrival ent, preservat evelio free DoD influenza, injectable, quadrivalent- pf 2018 [id number] 520 150 Seqirus complet ed influenza , injectabl e, quadrival ent-pf 12/01/18 Given Ambulat ory Pharmac y Influenza, injectable, quadrivalent, preservative free 6 2018 [id number] 520 150 Seqirus (SEQ) complet ed Influenza , injectabl e, quadrival ent, preservat evelio free DoD influenza, injectable, quadrivalent- pf 2017 [id number] 150 GlaxoSmithKli ne complet ed influenza , injectabl e, quadrival ent-pf 01/01/18 Given Ambulat ory Pharmac y Influenza, injectable, quadrivalent, preservative free 5 2017 [id number] 150 SmithKline (SKB) complet ed Influenza , injectabl e, quadrival ent, preservat evelio free DoD Marshallese Encephalitis IM 2017 [id number] [id number] 134 Valneva complet ed Marshallese Encephali tis IM 03/28/17 Given Ambulat ory Pharmac y Marshallese Encephalitis vaccine for intramuscular administratio n 3 2017 [id number] 3E 134 Valneva (LARY) complet ed Marshallese Encephali tis vaccine for intramusc ular administr ation [facility] Human Papillomaviru s 9-valent vaccine 2016 [id number] 165 Vivolux & Smart Imaging Systems Inc complet ed Human Papilloma virus 9-valent vaccine 03/14/17 Given Ambulat ory Pharmac y Human Papillomaviru s 9-valent vaccine 3 2016 [id number] 165 Merck (MSD) complet ed Human Papilloma virus 9-valent vaccine DoD influenza, seasonal, injectable-pf 2016 [id number] 140 GlaxoSmithKli ne complet ed influenza , seasonal, injectabl e-pf 11/25/16 Given Ambulat ory Pharmac y Influenza, seasonal, injectable, preservative free 4 2016 [id number] 140 tabulate (SKB) complet ed Influenza , seasonal, injectabl e, preservat evelio free DoD Marshallese Encephalitis IM 2016 [id number] 7E 134 Valneva complet ed Marshallese Encephali tis IM 03/25/16 Given Ambulat ory Pharmac y Marshallese Encephalitis vaccine for intramuscular administratio n 2 2016 [id number] 7E 134 Valneva (LARY) complet ed Marshallese Encephali tis vaccine for intramusc ular administr ation DoD Marshallese Encephalitis IM 2015 [id number] 4E 134 Valneva complet ed Marshallese Encephali tis IM 01/29/16 Given Ambulat ory Pharmac y Marshallese Encephalitis vaccine for intramuscular administratio n 1 2015 [id number] 4E 134 Intercell Biomedical (INT) complet ed Marshallese Encephali tis vaccine for intramusc ular administr ation DoD influenza, seasonal, injectable-pf 2015 [id number] 140 Seqirus complet ed influenza , seasonal, injectabl e-pf 12/28/15 Given Ambulat ory Pharmac y Influenza, seasonal, injectable, preservative free 1 2015 [id number] 140 Seqirus (SEQ) comple t ed Influenza , seasonal, injectabl e, preservat evelio free DoD anthrax vaccine 2015 [id number] 24 Emergent Biosolutions complet ed anthrax vaccine 05/20/15 Given Ambulat ory Pharmac y anthrax vaccine 2 2015 [id number] 24 Emergent BioDefense Operations [place] ([facility]) complet ed anthrax vaccine DoD typhoid Vi capsular polysaccharid e vac 2015 [id number] 101 sanofi pasteur complet ed typhoid Vi capsular polysacch aride vac 03/21/15 Given Ambulat ory Pharmac y anthrax vaccine 2015 [id number] 24 Emergent Biosolutions complet ed anthrax vaccine 03/21/15 Given Ambulat ory Pharmac y anthrax vaccine 1 2015 [id number] 24 Emergent [employer] [place] (MIP) complet ed anthrax vaccine DoD typhoid Vi capsular polysaccharid e vaccine 1 2015 [id number] 101 Sanofi Pasteur (PMC) complet ed typhoid Vi capsular polysacch aride vaccine DoD influenza, seasonal, injectable-pf 2014 [id number] 140 CSL Behring complet ed influenza , seasonal, injectabl e-pf 12/09/14 Given Ambulat ory Pharmac y Human Papillomaviru s,quadrivalen t(HPV4) 2014 [id number] 62 Merck & Company Inc complet ed Human Papilloma virus,michaela drivalent (HPV4) 12/09/14 Given Ambulat ory Pharmac y human papilloma virus vaccine, quadrivalent 0 2014 [id number] 62 Vivolux (MSD) complet ed human papilloma virus vaccine, quadrival ent DoD Influenza, seasonal, injectable, preservative free 2 2014 [id number] 140 CS Biotherapies, Inc. (CSL) complet ed Influenza , seasonal, injectabl e, preservat evelio free DoD influenza, live, intranasal,qu adrivalent 2013 [id number] 149 Medimmune Inc comple t ed influenza , live, intranasa l,quadriv alent 01/11/14 Given Ambulat ory Pharmac y influenza, live, intranasal, quadrivalent 1 2013 [id number] 149 MedICoda Automotive, Inc. (MED) complet ed influenza , live, intranasa l, quadrival ent DoD hepatitis A adult vaccine 2013 [id number] 52 GlaxoSmithKli ne complet ed hepatitis A adult vaccine 07/14/13 Given Ambulat ory Pharmac y Human Papillomaviru s,quadrivalen t(HPV4) 2013 [id number] 62 Merck & Company Inc complet ed Human Papilloma virus,michaela drivalent (HPV4) 07/14/13 Given Ambulat ory Pharmac y hepatitis A vaccine, adult dosage 2 2013 [id number] 52 [facility] ([facility] complet ed hepatitis A vaccine, adult dosage DoD human papilloma virus vaccine, quadrivalent 0 2013 [id number] 62 Merck (MSD) complet ed human papilloma [...] ory Pharmac y meningococcal A,C,Y,W-135 (MCV4P) 2012 [id number] 114 sanofi pasteur complet ed meningoco ccal A,C,Y,W-1 35 (MCV4P) 10/15/12 Given Ambulat ory Pharmac y tuberculin purified protein derivative 2012 [id number] 96 [facility] complet ed tuberculi n purified protein derivativ e 10/15/12 Given Ambulat ory Pharmac y adenovirus vaccine, live 2012 [id number] 2 143 Teva Pharmaceutica complet ed adenoviru [...] diphtheria toxoid conjugate vaccine (MCV4P) 1 2012 [id number] 114 Sanofi Pasteur (PMC) complet ed meningoco ccal polysacch aride (groups A, C, Y and W-135) diphtheri a toxoid conjugate vaccine (MCV4P) DoD tetanus toxoid, reduced diphtheria toxoid, and acellular pertu is vaccine, adsorbed [id number] [place], [place] [address] ([facility] complet ed tetanus toxoid, reduced diphtheri a toxoid, and acellular pertussis vaccine, adsorbed DoD Adenovirus, type 4 and type 7, live, oral 1 2012 [id number] 2 143 [facility] (BRR) complet ed Adenoviru s, [...] Reference Range Date Interpretation Specimen Comments Source Infectiou s Disease HIV-1/O/2 Non-Reac tive 1 (05/30/23 10:43 [...] Prevention' s HIV diagnostic algorithm. Refer to [facility] Lab Guide for additional information : [email or web address] x Testing performed by [employer] chacortauminAdcrowd retargetingmckayla ce. 5600A-U SAFSA EPILAB Miscellan eous Sendouts Repository Sample Received (05/30/23 10:43 AM) 05/29 N 5600A-U MARY ANNENuggetaLAB Vital Signs Combined list of inpatient and outpatient Vital Signs from Department of Defense and Veterans Affairs, ranging from 12 months to all on record, depending upon the facility. Vital Sign Value Date Comments Source Systolic Blood Pressure 122 mm[Hg] 05/30/2023 12:21:00 8203R-104 MDG Diastolic Blood Pressure 66 mm[Hg] 05/30/2023 12:21:00 8203R-104 MDG BP Site Right arm 05/30/2023 12:21:00 8203R -104 MDG Mean Arterial Pressure, Calc 85 mm[Hg] 05/30/2023 12:21:0 0 8203R-104 MDG Respiratory Rate 79 br/min 05/30/2023 12:21:00 8203R-104 MDG Encounters Combined list of: 1) Encounters from Department of Veterans Affairs facilities going backup to the last 18 months, not all [place] inpatient encounters are included; 2) Encounters from the Department of Defense facilities going backup to 280 months. Location Location Details Encounter Type Encounter Number Reason For Visit Attending Provider ADM Date DC Date Status Disposition Source [place] [address](Opt ometry Clinic BMT ASC) OUTPATIENT [id number] DAYA WILLIAM 10/20 Released w/o Limitations [facility] [place] [address](O ptometr y Clinic BMT [facility]) [facility] [place] [address]([facility] upational Medicine [facility]) OUTPATIENT [id number] Notes Entered by: RENATA HALL 22 Oct 2012805 ------- ------- ------- ------- -- Initial TB EDU BMT SOBIA FRY 10/22 Released w/o Limitations [facility] [place] [address](O ccupati onal Medicin e [facility]) [facility] [place] [address]([facility] upational Medicine [facility]) OUTPATIENT [id number] initial tb appt bmt ROSEY VAZQUEZ 10/29 Released w/o Limitations [facility] [place] [address](O ccupati onal Medicin e [facility]) [facility] [place] [address](DARCY Bocanegra) OUTPATIENT [id number] Notes Entered by: JACQUELINE BRADLEY 03 Nov 2012 0818 ------- ------- ------- ------- -- Rash on feet DAVID BRADLEY 11/03 Released w/o Limitations [facility] [place] [address](M Daljit) [facility] [place] [address]([facility] Medicine [facility]) OUTPATIENT [id number] refill appt [facility] CHRISTOPHER RUBIO 11/30 Released w/o Limitations [facility] [place] [address](O ccupati onal Medicin e [facility]) [place]([facility]) OUTPATIENT [id number] Notes Entered by: ALBIN DELACRUZ 22 Dec 2012 1140 ------- ------- ------- ------- -- Follow- up on INH tx. DOREEN CASAREZ 12/22 Released w/o Limitations [place](NAT C [facility]) [place] Occupatio nal Health) OUTPATIENT [id number] [facility] KIKI NAVARRETE 01/21 Released w/o Limitations [place] Occupat ional Health) [place] Hearing Conservat ion) OUTPATIENT [id number] AUDIO SCREENI GRACIELA PLASCENCIA 01/22 Released w/o Limitations [place] Hearing Conserv ation) [place]) OUTPATIENT [id number] Notes Entered by: LUPE GAGNON 26 Jan 2013 1200 ------- ------- ------- ------- -- RIF REFILL #2 OF 4 DOREEN CASAREZ JIMMY 01/26 Released w/o Limitations [place]([facility]) [place]([facility] [employer] ) OUTPATIENT [id number] Notes Entered by: MONICA ZEPEDA 02 Mar 2013 1120 ------- ------- ------- ------- -- RIF Refill #3 of 4 JOSE RUBIO 03/02 Released w/o Limitations [place]([address]) [place] [employer] ) OUTPATIENT [id number] Notes Entered by: LUPE GAGNON 06 Apr 2013 1136 ------- ------- ------- ------- -- RIFAMPI N REFILL #4 OF 4 DOREEN CASAREZ JIMMY 04/06 Released w/o Limitations [place]([address]) [employer] [place], [place] [employer](F light Medicine 22 MDG) OUTPATIENT [id number] [facility] KIKI CHENG 05/20 Released w/o Limitations [employer] [place], [place] [employer] (Flight Medicin e 22 MDG) [employer] [place] [employer]([facility] Health Assessmen t) TELE CONSULT [id number] Notes Entered by: OBDULIA WALKER 09 May 2014 0802 ------- ------- ------- ------- -- EBENEZER Stanley 05/[employer] [place], [place] [employer] (Preven tive Health Assessm ent) [employer] [place], [place] [employer](F light Medicine 22 MDG) OUTPATIENT [id number] [facility] KIKI Robert 05/12 Released w/o Limitations [employer] [employer] (Flight Medicin e 22 MDG) [employer] [employer]([facility] Team D) OUTPATIENT [id number] MANOJ Mcrae 05/19 Released w/o Limitations [employer] [employer] (Psychiatric hospital Team D) [employer] [employer](F light Medicine 22 MDG) OUTPATIENT [id number] TB follow up NIMA AGUILAR 03/16 Released w/o Limitations [employer] [employer] (Flight Medicin e 22 MDG) [employer] [employer](F light Medicine 22 MDG) OUTPATIENT [id number] OHA JEMMA PRIDE V 03/20 Released w/o Limitations [employer] [employer] (Flight Medicin e 22 MDG) [employer] [employer](M ental Health 22 MDG) OUTPATIENT [id number] [facility] OM Deploym ent Record Review RICHARD SAAVEDRA 03/20 Released w/o Limitations [employer] [employer] (Mental Health 22 MDG) [employer] [employer]([facility]) OUTPATIENT [id number] BRIT Wong 03/20 Released w/o Limitations [employer] [employer] ([facility]) [employer] [employer]( ental Health 22 MDG) OUTPATIENT [id number] JALEN Mccarty 03/20 Released w/o Limitations [employer] [employer] (Mental Health 22 MDG) [employer] [employer]([facility] Team C) TELE CONSULT [id number] Notes Entered by: Jagruti MORENO 27 Mar 2015 1533 ------- ------- ------- ------- -- luann BA GUPTA 03/27 Referred for Appointment [employer] [employer] [employer] ([facility] Team C) Theater Facility OUTPATIENT [id number] Theater Provider 06/04 Released w/o Limitations Theater Facilit [facility] [employer] [employer](P reventive Health Assessmen t) OUTPATIENT [id number] admin BURTON JIMENEZ 07/24 Released w/o Limitations [employer] [employer] (Preven ve Health Assess ent) [facility] Facility OUTPATIENT [id number] Theater Provider 07/28 Released w/o Limitations Theater Facilit y [employer] [employer]([facility]) OUTPATIENT [id number] BRIT Gonzalez 11/30 Released w/o Limitations [employer] [employer] [employer] ([facility]) [employer] [employer](B ase Operation al Medical Cell) OUTPATIENT [id number] SATHISH Frances 04/10 Released w/o Limitations [employer] [employer] (Base Operati onal Medical Cell) [employer] [employer]([facility] Team [facility]) OUTPATIENT [id number] MARGARITO DUBOIS 05/31 Released w/o Limitations [employer] [employer] ([facility] nyasia [facility] Team B) [employer] [employer](B ase Operation al Medical Cell) TELE CONSULT [id number] Notes Entered by: SABINO SEPULVEDA 19 Jun 2016 0828 ------- ------- ------- ------- -- [facility] SABINO SEPULVEDA 06/19 Other Not Elsewhere Classified [employer] [employer] (Base Operati onal Medical Cell) [employer] [employer](I n and Out Processin g [facility]) TELE CONSULT [id number] Notes Entered by: SADA PEDERSON 30 Jul 2016 1125 ------- ------- ------- ------- -- [facility] ess- PCM to SADA Borrero 07/30 Other Not Elsewhere Classified [employer] [facility] [employer] [employer] (In and Out Process ing [facility]) [employer] [place] [employer](B ase Operation al Medical Cell) OUTPATIENT [id number] BENNETT 4\ BRIT ARAUZ 08/01 Released w/o Limitations [employer] [facility] [employer] [employer] (Base Operati onal Medical Cell) [employer] [place] [facility], [place] [employer](B ase Operation al Medical Cell) OUTPATIENT [id number] Notes Entered by: SIVAN DAVIDSON 06 Aug 2016 1108 ------- ------- ------- ------- -- Annual Triserv ice [facility] MARGARITO PIEDRA 08/06 [facility]ased w/o Limitations [facility] [place] [employer] (Base Operati onal Medical Cell) [place]([facility] D Team) TELE CONSULT [id number] Notes Entered by: KAYLIE HOLM 23 Sep 2016 0908 ------- ------- ------- ------- -- Marino Canseco d by ER [id number] GILBERT SALINAS 09/23 [place] ([facility] D Team) [place](Inocente a Medical In-Out Processin g) TELE CONSULT [id number] Notes Entered by: JENNY CAIN I 07 Nov 2016 1105 ------- ------- ------- ------- -- in-proc JENNY Abernathy I 11/07 Referred for Appointment [place] [facility] ( Medical In-Out Process ing) [facility]ending [facility] To [facility]) OUTPATIENT [id number] SHAYLA KUMAR 11/07 Released w/o Limitations [facility] ( Optomet ry Clinic) [facility]) OUTPATIENT [id number] Notes Entered by: JACQUELINE FRANZ 13 Nov 2016 1434 ------- ------- ------- ------- -- IN PROCESS ING TALYA FRANZ 11/13 Released w/o Limitations [facility] ([facility]) [facility] A Team) OUTPATIENT [id number] Rash on back, spreadi ng to chest (red bumps) x 1 month (Beckie Lopez) CARL GEORGE 12/12 Released w/o Limitations [facility] ([facility] A Team) [facility] Hearing Conservat ion) OUTPATIENT [id number] Notes Entered by: JACQUELINE FRANZ 14 Mar 2017 0811 ------- ------- ------- ------- -- AUDIOGR AM TALYA FRANZ 03/13 [place] Limitations [facility] ( Hearing Conserv at[facility]) [facility]) TELE CONSULT [id number] Notes Entered by: JACQUELINE FRANZ 14 Mar 2017 0812 ------- ------- ------- ------- -- MADATOR Y LABS FOR WPID [id number] TALYA FRANZ 03/13 [place] for [place]ment [place] [facility]) [facility]) OUTPATIENT [id number] OHA 465A JANUSZ LAMBERT 03/26 Released w/o Limitations [facility] ([facility]) [facility]( a [facility] D Team) TELE CONSULT [id number] Notes Entered by: Sera COFFMAN 09 Apr 2017 0719 ------- ------- ------- ------- -- SOBIA VIZCARRA 04/08 Referred- Emergency Department [facility] ([facility] D Team) [facility] D Team) OUTPATIENT [id number] ER f/u , Kirstie courtney L ankle px 05/24, cant put full pressur e on foot OBDULIA FUNKOINETTE 04/09 Released with Work/Duty Limitations [facility] ([facility] D Team) [facility]LE [facility]SULT [id number] Notes Entered by: Conor LLANES 16 Apr 2017 1026 ------- ------- ------- ------- -- Profile related QUINN FERNÁNDEZ 04/16 Other Not Elsewhere Classified [facility] ([facility]) [facility]) OUTPATIENT [id number] f/u L foot/pr CRIS Joyner 05/23 Released w/o Limitations [facility] ([facility]) [facility]) OUTPATIENT [id number] Notes Entered by: Lupe AHYES 05 Aug 2017 1556 ------- ------- ------- ------- -- BENNETT Barahona/NIMCO CHAPPELL 08/05 Released w/o Limitations [facility] ([facility]) [facility]) OUTPATIENT [id number] Notes Entered by: Mckayla COFFMAN 06 Aug 2017 0950 ------- ------- ------- ------- -- TRI SERVICE GUILLAUME/CRIS DAMICO 08/06 Released w/o Limitations [facility] ([facility]) [place] [facility]) TELE CONSULT [id number] Notes Entered by: BETSEY OKEEFE 18 Mar 2018 1352 ------- ------- ------- ------- -- [place] Labs JANAE OKEEFE 03/18 Referred for Appointment [facility] ([facility]) [facility] Hearing Conservat ion) OUTPATIENT [id number] Notes Entered by: IZABELA JAIN 18 Mar 2018 1406 ------- ------- ------- ------- -- AUDIOGR AM JERALD COLEMAN 03/18 Released w/o Limitations [facility] ( [facility]) OUTPATIENT [id number] OHA LEONIDES MAHMOOD 03/18 Released w/o Limitations [facility] ([facility]) [facility]) OUTPATIENT [id number] 9 !1600 sleep study ISAÍAS PARISH 04/01 Released w/o Limitations [facility] ([facility]) [facility] ry[facility]ology Clinic) OUTPATIENT [id number] Hypertr ophy of tonsils CELIA OSORIO 04/07 Released w/o Limitations [facility] ([facility]) [facility] A Team) TELE CONSULT [id number] Notes Entered by: Mayte PARISH 13 Apr 2018 0621 ------- ------- ------- ------- -- LAB ISAÍAS [place]ISH 04/12 [facility] ([facility] A Team) [facility] BG) OUTPATIENT [id number] Notes Entered by: EDMAR VALDES 11 May 2018 1446 ------- ------- ------- ------- -- *spike in glucose during PT test [place] 05/11 Released w/o Limitations [facility] ([facility]) [facility]) OUTPATIENT [id number] GEOVANNY MOORE 09/21 Released w/o Limitations [facility] ([facility]) [facility]) OUTPATIENT [id number] 7 RASH (GROIN) X 2 DAVIN JONES 09/22 Released w/o Limitations [facility] ([facility]) [facility]) OUTPATIENT [id number] DAVIN Juarez 09/28 Released w/o Limitations [facility] ([facility]) [facility]) OUTPATIENT [id number] SHPE SHAHRAM BAJWA 10/06 Released w/o Limitations [facility] ([facility]) [facility]( a Hearing Conservat ion) OUTPATIENT [id number] 2 Audiogr am SHPANIBAL POP 10/07 Released w/o Limitations [facility] ( [facility] at[facility]) [facility]) OUTPATIENT [id number] Notes Entered by: Lupe EVANS 13 Oct 2018 0835 ------- ------- ------- ------- -- TRI SERVICE GUILLAUME/[place] 10/12 Released w/o Limitations [facility] ([facility]) [facility]( [facility]) OUTPATIENT [id number] SHPE HYUN BURROUGHS 11/19 Released w/o Limitations [facility] ( Intern[facility] l Medicin e [facility]) [facility]) TELE CONSULT [id number] Notes Entered by: ANNETTE PETERS 20 Nov 2018 0904 ------- ------- ------- ------- -- PCPBasilia lizarraga JUMA CEBALLOSANTY 11/20 [facility] ([facility]) [facility](Pending Sale To [facility]) OUTPATIENT [id number] Notes Entered by: MAXIMINO LARES 24 Nov 2018 1545 ------- ------- ------- ------- -- PT DROPPED OFF SHPE TO BE SIGNED HYUN BURROUGHS 11/24 Released w/o Limitations [facility] ( Intern[facility] l Medicin e [facility]) [facility] D [facility]) OUTPATIENT [id number] 6 ![id number], PFT JELLY Garcia, HAS HAD TROUBLE BREATHI NG WHILE RUNNING [place] 03/22 Released w/o Limitations [facility] ([facility] D [facility]) [facility]) OUTPATIENT [id number] SEEN 03/22 FOR PFTIAN TO BOOK FOLLOWU P 1 MONTH OUT [place] 04/26 Released w/o Limitations [facility] ([facility] D [facility]) [facility](Pending Sale To [facility]) TELE CONSULT [id number] Notes Entered by: Sera OSBORNE 13 May 2019 1108 ------- ------- ------- ------- -- request ing provide rs signatu re for SHPE PPW HYUN BURROUGHS 05/13 [facility] ([facility]) [facility](P ulmonary Disease Clinic) OUTPATIENT [id number] methsac ROSEY Barroso 05/18 Released w/o Limitations [facility] ([facility]) [facility] [place] [address](AFN G [address] Med Sq-FM) OUTPATIENT [id number] Notes Entered by: NED MATTHEWS 11 Apr 2020 1220 ------- ------- ------- ------- -- PHAQ NED MATTHEWS 04/11 [facility]ased w/o Limitations [facility] [place] [place] [address](A FNG 104 Med Sq-FM) [place] [address](AFN G 104 Med Sq-FM) OUTPATIENT [id number] Notes Entered by: NED MATTHEWSLUIS DANIEL 04 May 2020 1051 ------- ------- ------- ------- -- Post deploy to [facility] NED MATTHEWS 05/04 Released w/o Limitations [facility] [place] [address](A FNG 104 Med Sq-FM) [facility] [place] [address](AFN G 104 Med Sq-FM) OUTPATIENT [id number] Notes Entered by: NED MATTHEWSLUIS DANIEL 30 Apr 2021 0913 ------- ------- ------- ------- -- PHAQ NED MATTHEWS 04/30 Released w/o Limitations [facility] [place] [address](A FNG 104 Med Sq-FM) [facility] [place] [address](AFN G 104 Med Sq-FM) OUTPATIENT [id number] Notes Entered by: KOLBY ABDALLA 25 May 2021 0928 ------- ------- ------- ------- -- Audiogr am/[place] Jesus rodriguez/P VIKRAM/ANDREW A1 KATY ARAIZA 05/25 Released w/o Limitations [facility] [place] [address](A FNG 104 Med Sq-FM) 8203R-104 MDG Outpatient [id number] SHAHRAM HARPER 06/04 Discharge Disposition: Home or Self Care 8203R-1 04 MDG 8203R-104 MDG Care Not Rendered [id number] 11/20 Discharge Disposition: Home or Self Care 8203R-1 04 MDG 8203R-104 MDG Care Not Rendered [id number] 01/21 Discharge Disposition: Home or Self Care 8203R-1 04 MDG 8203R-104 MDG Care Not Rendered [id number] 02/16 Discharge Disposition: Home or Self Care 8203R-1 04 MDG 8203R-104 MDG Care Not Rendered [id number] 03/24 Discharge Disposition: Home or Self Care 8203R-1 04 MDG Procedures Combined list of: 1) Procedures from Department of Veterans Affairs facilities going back up to thelast 18 months, not all VA non-surgical procedures are included; 2) All procedures from the Department of Defense facilities. Procedure Procedure Type Code Date Perfomer Comments Sourc e No data available for this section Ambulato ry Pharmacy PURE TONE AUDIOMETRY (THRESHOLD); AIR ONLY 2012 DoD THERAPEUTIC, PROPHYLACTIC, OR DIAGNOSTIC INJECTION (SPECIFY SUBSTANCE OR DRUG); SUBCUTANEOUS OR INTRAMUSCULAR 2012 DoD SCREENING TEST OF VISUAL ACUITY, QUANTITATIVE, BILATERAL 2012 DoD ADMINISTRATION OF PATIENT-FOCUSED HEALTH RISK [...] ADMINISTERED BY A COMPUTER, WITH QUALIFIED HEALTH POLO COACH INTERPRETATION AND REPORT 2015 DoD PSYCHIATRIC EVALUATION [...] FEET); 2.6 CM TO 7.5 CM 2018 [facility] ELECTROCARDIOGRAM, ROUTINE ECG WITH AT LEAST 12 LEADS; WITH INTERPRETATION AND REPORT 2018 DoD SCREENING TEST, PURE TONE, AIR ONLY 2018 [facility] PATIENT EDUCATION, NOT OTHERWISE CLASSIFIED, NON-PHYSICIAN PROVIDER, [...] PAIR, WITH PADS, TIPS AND HANDGRIPS 2017 [facility] SPIROMETRY, INCLUDING GRAPHIC RECORD, TOTAL AND TIMED [...] 24H/SOON APT; 11-20 MIN MED DIS 2016 [facility] Preventive Medicine Administration Of Health Risk Questionnaire Patient-Focused Preventive Medicine Administration Of Health Risk Questionnaire Patient-Focused 23486 2018 MANGO EVANS Threshold Audiogram (Pure Tone) Automated Threshold Audiogram (Pure Tone) Automated 0208T 2018 ANIBAL GRAVES [facility] Patient education, not otherwise cla ified, non-physician provider, individual, per se ion 2018 ANIBAL GRAVES [facility] Psychometric Emotional / Behavioral A e ment Psychometric Emotional / Behavioral Assessment 18626 2018 GUILHERME WILLIAM Preventive Medicine Administration Of Health Risk Questionnaire Patient-Focused Preventive Medicine Administration Of Health Risk Questionnaire Patient-Focused 32038 2018 GUILHERME WILLIAM [facility] Internet Med Svc Qual Nonphys Healthcare Prof Up To 7 Days Estab Patient Internet Med Svc Qual Nonphys Healthcare Prof Up To 7 Days Estab Patient [id number] 2018 GUILHERME WILLIAM [facility] Internet Med Svc Qual Nonphys Healthcare Prof Up To 7 Days Estab Patient Internet Med Svc Qual Nonphys Healthcare Prof Up To 7 Days Estab Patient [id number] 2018 GEOVANNY ARRIETA Psychometric Emotional / Behavioral A e ment Psychometric Emotional / Behavioral Assessment 57617 2018 GEOVANNY ARRIETA Preventive Medicine Administration Of Health Risk Questionnaire Patient-Focused Preventive Medicine Administration Of Health Risk Questionnaire Patient-Focused 34391 2018 GEOVANNY ARRIETA Audiogram (Screening) Audiogram (Screening) 61836 2018 LEONIDES MAHMOOD [facility] Visual Function Screening Visual Function Screening 41701 2018 LEONIDES MAHMOOD [facility] Patient education, not otherwise cla ified, non-physician provider, individual, per se ion 2018 JERALD COLEMAN Threshold Audiogram (Pure Tone) Automated Threshold Audiogram (Pure Tone) Automated 0208T 2018 JERALD COLEMAN [facility] Preventive Medicine Administration Of Health Risk Questionnaire Patient-Focused Preventive Medicine Administration Of Health Risk Questionnaire Patient-Focused 62258 2017 NIMCO HAYES Internet Med Svc Qual Nonphys Healthcare Prof Up To 7 Days Estab Patient Internet Med Svc Qual Nonphys Healthcare Prof Up To 7 Days Estab Patient [id number] 2017 NIMCO HAYES Splint, prefabricated, wrist or ankle 2017 CRIS WESTFALL Non-Physician Phone Call To Patient/Provider Brief (5-10min) Non-Physician Phone Call To Patient/Provider Brief (5-10min) 65495 2017 QUINN FERNÁNDEZ Spirometry Spirometry 20292 2017 JANUSZ LAMBERT Threshold Audiogram (Pure Tone) Automated Threshold Audiogram (Pure Tone) Automated 0208T 2016 BETO FRANZ Patient education, not otherwise cla ified, non-physician provider, group, per se ion 2016 BETO FRANZ Spectacles Services Fitting Monofocal Except For Aphakia Spectacles Services Fitting Monofocal Except For Aphakia 61817 2016 SHAYLA RICH Ophthalmological New Patient Start Comprehensive Care Ophthalmological New Patient Start Comprehensive Care 37879 2016 SHAYLA RICH Determination Of Refractive State Determination Of Refractive State 68821 2016 SHAYLA RICH Non-Physician Phone Call To Pt/Provider Intermed (11-20 min) Non-Physician Phone Call To Pt/Provider Intermed (11-20 min) 40116 2016 GILBERT SALINAS Preventive Medicine Administration Of Health Risk Questionnaire Patient-Focused Preventive Medicine Administration Of Health Risk Questionnaire Patient-Focused 84005 2016 MARGARITO PIEDRA [facility] Preventive Medicine Administration Of Health Risk Questionnaire Patient-Focused Preventive Medicine Administration Of Health Risk Questionnaire Patient-Focused 94634 2016 BRIT ARAUZ Psychometric Emotional / Behavioral A e ment Psychometric Emotional / Behavioral Assessment 48087 2016 BRIT ARAUZ Threshold Audiogram (Pure Tone) Threshold Audiogram (Pure Tone) 08138 2016 SATHISH HASSAN [facility] Psychometric Emotional / Behavioral A e ment Psychometric Emotional / Behavioral Assessment 10311 2015 BRIT ARAUZ [facility] Psychometric Neuropsych Testing Battery Admin By Computer Psychometric Neuropsych Testing Battery Admin By Computer 85918 2015 JALEN HI [facility] Psychiatric Diagnostic Evaluation Review of Records and Reports Psychiatric Diagnostic Evaluation Review of Records and Reports 30448 2015 JALEN HI [facility] Visual Function Screening Visual Function Screening 83688 2014 KIKI DOS SANTOS [facility] Threshold Audiogram (Pure Tone) Threshold Audiogram (Pure Tone) 51094 2014 KIKI DOS SANTOS [facility] Extensive Color Vision Testing Extensive Color Vision Testing 48365 2013 KIKI DOS SANTOS [facility] Threshold Audiogram (Pure Tone) Threshold Audiogram (Pure Tone) 80849 2013 LEVON KIKI Jessica [facility] Visual Function Screening Visual Function Screening 49287 2013 LEVON KIKI Jessica [facility] Threshold Audiogram (Pure Tone) Threshold Audiogram (Pure Tone) 07473 2012 GRACIELA WILDE [facility] Screening Test Of Visual Acuity, Quantitative, Bilateral Screening Test Of Visual Acuity, Quantitative, Bilateral 85222 2012 [place] [facility] Determination Of Refractive State Determination Of Refractive State 91377 2012 [place], [place] [facility] Spectacles Services Fitting Monofocal Except For Aphakia Spectacles Services Fitting Monofocal Except For Aphakia 18116 2012 [place], [place] [facility] Pulse Oximetry With Multiple Determinations Pulse Oximetry With Multiple Determinations 668[address] [facility], [facility] Spirometry Post-bronchodilator Spirometry Post-bronchodilato r 76124 [facility], [facility] Bronchial Challenge With Methacholine Bronchial Challenge With Methacholine 23733 [facility], [place] [facility] Allergy Testing - Inhalation Bronchial Challenge With Drugs Allergy Testing - Inhalation Bronchial Challenge With Drugs 38061 [facility], [place] [facility] Social History Combined list of available smoking, [...] Plan No data available for this section 04/27/2024 Ambulatory Pharmacy Functional Status Combined list of recent functional and cognitive assessments recorded at [facility] [place] Functional [place] Measurement (FIM) Scale: 1 = Total Assistance (Subject = 0% +), 2 = Maximal Assistance (Subject = 25% +), 3 = Moderate Assistance (Subject = 50% +), 4 = Minimal Assistance (Subject = 75% +), 5 = Supervision, 6 = Modified [place] (Device), 7 = Complete [place] (Timely, Safely). Assessment Date/Time Source Assessment Type Assessment Skill Assessment Score Assessment Details No data available for this section
== END 2024-04-27 16:09 | disposition home or self-care (01) ==
PROVIDERS: PCP Nurse Practitioner Family; Visit Provider Orthopaedic Surgery
DX: M25.531 Pain in right wrist (principal)
CPT/HCPCS: 99213

== ENCOUNTER → 2024-04-27 15:31 | Outpatient (BNVA) | payer OTHER, SELFPAY | PROVIDERS: PCP Nurse Practitioner Family; Visit Provider Orthopaedic Surgery | DX: M25.531 Pain in right wrist (principal) | CPT/HCPCS: 99212 ==

== ENCOUNTER 2024-12-24 11:48 | Outpatient (REF) | payer OTHER, SELFPAY ==
[2024-12-24 14:25] LABS: Hematocrit 44.7 % (42.0-52.0); Hemoglobin 15.4 g/dl (14.0-18.0); Mean Corpuscular HGB Conc 34.5 g/dl (31.0-36.0); Mean Corpuscular Hemoglobin 28.8 pg (27.0-33.0); Mean Corpuscular Volume 83.6 fL (80.0-98.0); NRBC Abs Auto 0.000 X10*3/uL (0.0-0.012); NRBC Pct Auto 0.0 /100WBC (0.0-0.2); Platelet Count 298 X10*3/uL (160-400); Red Blood Count 5.35 X10*6/uL (4.60-5.80); White Blood Count 8.7 X10*3/uL (4.8-10.8)
[2024-12-24 15:36] LABS: Folate 8.1 ng/mL (> or = 4.0); Vitamin B12 803 pg/mL (200-900)
[2024-12-24 17:18] LABS: Alanine Aminotransferase 51 U/L (0-40); Albumin Level 4.8 g/dL (3.5-5.0); Alkaline Phosphatase 49 U/L (39-117); Anion Gap 15 (12-20); Aspartate Amino Transferase 56 U/L (5-37); Blood Urea Nitrogen 11 mg/dL (9-16); Calcium 9.2 mg/dL (8.4-10.2); Carbon Dioxide 25 mmol/L (22-29); Chloride 104 mmol/L (96-108); Cholesterol 189 mg/dL (<200); Estimated Glomerular Filt Rate > 60; HDL Cholesterol 34 mg/dL (>40); Potassium 3.6 mmol/L (3.3-5.1); Sodium 140 mmol/L (135-145); Total Protein 7.6 g/dL (6.5-8.0); Triglycerides 347 mg/dL (<150)
[2024-12-24 19:20] LABS: Microalbum/Creatinine Ratio Ur 3.3 ug/mg cr (<30)
== END 2024-12-24 11:49 | disposition home or self-care (01) ==
LOC: HO.WFDLDS 11:48
PROVIDERS: PCP Nurse Practitioner Family; Visit Provider Nurse Practitioner Family
DX: Z00.00 Encounter for general adult medical examination without abnormal findings (principal); Z00.01 Encounter for general adult medical examination with abnormal findings; Z23 Encounter for immunization; L20.82 Flexural eczema; E78.00 Pure hypercholesterolemia, unspecified; Z88.9 Allergy status to unspecified drugs, medicaments and biological substances; H53.143 Visual discomfort, bilateral; R41.89 Other symptoms and signs involving cognitive functions and awareness; E66.9 Obesity, unspecified; Z87.19 Personal history of other diseases of the digestive system; Z68.35 Body mass index [BMI] 35.0-35.9, adult
CPT/HCPCS: 36415; 80053; 80061; 82043; 82306; 82570; 82607; 82746; 83036; 84443; 85027; 90471; 90656; 96127; 99212

== ENCOUNTER 2024-12-24 11:48 | Outpatient (AMB) | payer OTHER, SELFPAY ==
--- NOTE | 2024-12-24 11:49 | A.OFFPC_ITS ---
Vital Signs 12/24/24 11:53 Height 5 ft 6 in Weight 220 lb BMI 35.5 BP 122/70 Blood Pressure Location Lt brachial Position Sitting Respiration 12 Pulse 69 Pulse Source Pulse Oximeter Temp 97.1 F Temp Source Oral Pulse Oximetry (%) 99 Oxygen Delivery Method Room Air Intake Visit Reasons: 1 year CPE Intake Note: CPE Ship Unloader Required: No Allergies No Known Allergies Allergy (Verified 12/24/24 12:17) Medication List - Last Reconciled 12/24/24 by JASBIR Alcantar No Known Home Meds Tobacco use date assessed: 12/24/24 Dental Screening Dental Screen Date: 12/24/24 Did you have a dental visit in the last 12 months?: Yes Did you have a dental problem in the last 6 months where you did not have access to dental care?: No Was dental information given to patient?: Patient has dentist HPI HPI Comments History of Present Illness Details 34 y/o M with seasonal allergies, GERD, obesity, elevated LDL s/p tonsillectomy 12/2021 Social: . 1 son, 2 years, 1 dtr 6 months, healthy. . Denies sig family hx. Health Maintenance: Tdap UTD 2022 Flu today 12/24/24 Specialists: Orthopedics History of Present Illness The patient is a 34-year-old male presenting with wellness concerns and memory impairment. Memory Impairment: - Recent onset after second child's tosha h - Initial notice by spouse - Increased reliance on notes for work - Denies history of trauma or headaches - Considers memory issue stress-related Sleep Disturbance: - Due to childcare responsibilities Hyperlipidemia: - Elevated cholesterol levels previously tested - Interested in retesting Gastroesophageal Reflux Disease (GERD): - [facility] Eczema controlled along w/ seasonal allergies Past Surgical History - No surgical procedures reported. Family History - No significant family medical history changes since last visit. Social History - Family status: with a 2-year-o ld child and a 6-month-old baby. - Employment and work stress due to pantera ry issues. Health Maintenance - Recommended retesting of cholesterol clarke tellez. - Flu vaccine offered and accepted edison castro the visit. - No need for early colonoscopy; recomme nded to start at age 45. - Suggestion for a comprehensive eye exa mination including sensitivity evaluation. Review of Systems - Neurological: Reports memory issues. - Musculoskeletal: Denies current headac hes or traumatic brain injuries. - Sleep: Reports sleep disturbance due t o childcare. - Gastrointestinal: GERD in remission, r eports previous occurrence. - Ophthalmological: Reports light sensit ivity. Physical Exam General: Well developed, well nourished, in no acute distress. Appears stated age. Head: Normocephalic, atraumatic. No traumatic brain injuries reported. Eyes: Pupils are equal, round and reactive to light and accommodation. Conjunctivae are clear. Scleras nonicteric bilat. Sensitivity to light reported during exam today. No nystagmus. Ears: TMs clear AU, EACS WNL. Ears appear normal. Nose: Patent, without discharge. Neck: No carotid bruit bilat. Supple, no adenopathy or thyromegaly. Breast: Edu on SBE Lungs: Clear to auscultation bilaterally. No rales, rhonchi or wheeze noted. Good air flow in all suarez. Heart: Regular rate and rhythm. No murmurs, click, rubs or gallops are noted. Abdomen: Bowel sounds present in all quadrants. The abdomen is soft, nontender, with no masses or organomegaly noted. No hernias are noted. : Deferred. Reviewed VIC & recommendations Pulses: Peripheral pulses are equal and palpable bilaterally. Extremities: No clubbing, cyanosis nor edema is noted. Neurologic: Gait and station normal. Cranial Nerves 2-12 intact. Motor strength grossly symmetrical and intact. No sensory loss. Balance normal. Memory issues reported, possibly related to stress and lack of sleep. Skin: No rashes, ulcers, or lesions noted. Turgor is good. Skin color is good. Hair and nails are without abnormalities. Psych: Normal eye contact, affect and mood appropriate, and normal interactions. Patient is alert and appropriate to context. Memory concerns discussed, possibly related to stress and sleep deprivation. Results - Labs: Previous cholesterol evaluation showed elevated LDL levels. Discussion Notes I discussed the patient's recent memory issues and how they align with life stresses, particularly recent parenting responsibilities. We reviewed management strategies, including the consideration of counseling or stress reduction therapy, but the patient declined. I emphasized the importance of reassessing if memory issues worsen. The potential for a sleep study was discussed, but not pursued, as well as comparing it to past sleep studies. The patient decided on cholesterol retesting, and a flu vaccination was administered during the visit. We also addressed the need for routine preventive screenings, including eye examinations. I gave anticipatory guidance regarding memory, noting how stress and lack of sleep could contribute to symptomatology. Follow-up communication through the health portal was agreed upon for results and further concerns. Patient was given time to ask questions. All questions were answered to their satisfaction. Assessment and Plan 1. Memory Impairment - Monitor for worsening - Optional counseling discussed along w/ diagnostic testing and referral to Neuro - declined. 2. Sleep Disturbance - Due to childcare - neg sleep study in the past. 3. Hyperlipidemia - Repeat cholesterol testing 4. Gastroesophageal Reflux Disease (GERD ) - No current complaints 5. Light Sensitivity - Comprehensive eye exam referral placed today Patient Instructions - Get cholesterol levels retested. - Receive flu vaccination today. - Return if memory issues worsen or inte rfere with daily activities. - Schedule eye exam for light sensitivit y evaluation. - Follow up in one year for routine [facility] k-up. Consent Patient was informed and verbally consented to the use of an ambient scribe for clinic note documentation during this visit. An additional 20 minutes was spent addressing the problem(s) noted at todays visit. This includes time spent before the visit reviewing the chart, time spent during the visit, and time spent after the visit on documentation reviewing laboratory results, diagnostic imaging, medications, performing a medically necessary evaluation, counseling on diagnoses, care coordination, ordering appropriate tests, ordering appropriate medications, review of tests performed by other providers, reporting test results with the patient, communication with other healthcare providers. [facility] Medical History (Updated 12/24/24 @ 12:35 by Kelli Andrew [facility]) Eczema Heart burn Right wrist pain Surgical History Hx of tonsillectomy Family History (Updated 12/22/23 @ 11:55 by Jeane Black MA) Mother No problems noted. Father High blood pressure Maternal Grandfather Throat cancer Social History Household Members: None Both parents involved: No Caregiver staying overnight: No Housing: Apartment Are you a primary career specialist to a significant other at home: No Do you presently have visiting nurse or other home services: No 75 years or older and lives alone: No Alcohol intake: current Alcohol intake frequency: a few times a week Alcohol type: beer Patient Tobacco Use Status: Never used Tobacco e-Cigarette/Vaping Use: Never Used Second Hand Smoke Exposure: No service: Yes Current occupational status: employed Current occupation: Cognitive needs: No Hearing needs: No Vision needs: No Questionnaire PHQ-9 Over the last 2 weeks, how often have you been bothered by any of the following problems? 1. Little interest or pleasure in doing things: not at all 2. Feeling down, depressed, or hopeless: several days 3. Trouble falling or staying asleep, or sleeping too much: not at all 4. Feeling tired or having little energy: more than half the days 5. Poor appetite or overeating: not at all 6. Feeling bad about yourself - or that you are a failure or have let yourself or your family down: not at all 7. Trouble concentrating on things, such as reading the newspaper or watching television: not at all 8. Moving or speaking so slowly that other people could have noticed. Or the opposite - being so fidgety or restless that you have been moving around a lot more than usual: not at all 9. Thoughts that you would be better off or of hurting yourself in some way: not at all Total score: 3 Depression Screening Interpretation: Negative Depression Screening Done: Yes 10422 - PHQ-9 Billing: Yes Source: Developed by Drs. Elbert Peters, Agata Carlisle, Damien Perez and colleagues, with an educational rachel from [employer]. Thrive Questionnaire Date Thrive assessed: 12/24/24 I am a: Patient What is your living situation today?: I have a steady place to live Within the past 12 months, did the food you bought not last and you didn't have the money to get more?: Never true Within the past 12 months, did you worry whether your food would run out before you got money to buy more?: Never true Do you have trouble paying for medicines?: No Do you have trouble getting transportation to medical appointments?: No Do you have trouble paying your heating and electricity bill?: No Do you have trouble taking care of your child, family member or friend?: No Do you have trouble with day-to-day activities such as bathing, preparing meals, shopping, managing finances, etc.?: No Are you currently unemployed and looking for a job?: No Are you interested in more education?: No Please select the resources that you would like help with: None Currently or been in a relationship where the following occur: No concerns reported THRIVE Score: 0 AUDIT C Alcohol Use Questionnaire (AUDIT-C) 1. How often do you have a drink containing alcohol?: 2-4 times a month 2. How many drinks containing alcohol do you have on a typical day when you are drinking?: 1 or 2 3. How often do you have six or more drinks on one occasion?: Never Total Score: 2 Score Reviewed/Action Taken: Yes RAMON-7 AMB Questionnaire RAMON-7 Date RAMON - 7 assessed: 12/24/24 Feeling nervous, anxious, or on edge: 1 = Several days Not being able to stop or control worryin = Not at all Worrying too much about different things: 1 = Several days Trouble relaxin = Not at all Being so restless that it is hard to sit still: 0 = Not at all Becoming easily annoyed or irritable: 0 = Not at all Feeling afraid as if something awful might happen: 1 = Several days Total RAMON-7 score (0-4 normal; 5-9 mild; 10-14 moderate; 15-21 severe): 3 Source: Developed by Drs. Elbert Peters, Agata Carlisle, Damien Perez and colleagues, with an educational rachel from [employer]. RAMON-7 Assessment Billing RAMON-7 Assessment Tool: RAMON-7 Assessment 94594 Physical exam (Primary Care) Vital Signs: Last Vital Signs Temp 97.1 F 12/24/24 11:53 Pulse 69 12/24/24 11:53 Resp 12 12/24/24 11:53 BP 122/70 12/24/24 11:53 Pulse Ox 99 12/24/24 11:53 Oxygen Delivery Method Room Air 12/24/24 11:53 BMI result Body Mass Index 35.5 BMI Assessment/Plan discussion: High BMI High, discussed plan: lifestyle Tobacco/Smoking Status: Tobacco use Status Tobacco use date assessed 12/24/24 12/24/24 11:55 Patient Tobacco Use Status Never used Tobacco 12/24/24 11:55 e-Cigarette/Vaping Use Never Used 12/24/24 11:55 PHQ-9: PHQ-9 Score PHQ-9: Total score 3 12/24/24 12:17 Depression Screening Interpretation: Negative Thrive Assessment: Date of Thrive Assessment Date Thrive assessed 12/24/24 12/24/24 11:55 Currently or been in a relationship where the following occur: No concerns reported Office Procedures Flu Questionnaire Does the patient have a severe egg allergy?: No Does the patient have severe life threatening allergies?: No Does the patient have a fever or illness today?: No Has the patient ever had Guillain-Albion Syndrome?: No Has the patient ever had any past reaction to a flu shot?: No Immunizations Fluarix [id number] (PF) 45 mcg (15 mcg x 3)/0.5 mL IM syringe Performing Provider: JESSICA Alcantar [place] [facility] Administered by: Jeane Nielson MA on 12/24/24 12:35 Dose Route Admin Location Dispensed Lot Number Expiration Date NDC Strategy Specialist 0.5 mL IM Left Deltoid 0.5 mL [id number] 09/13/25 [id number] GLAXO SMITHKLINE VIS Given Date VIS Provided VIS Publication Date 12/24/24 Single Vaccine 24 Eligibility Eligibility Date Funding Source Not [facility] Eligible 12/24/24 Private Coding Level of Care Code Est Pt Level 3 (89099) New Pt Prev Care 18-39yr(40442 Diagnoses Annual visit for general adult medical examination with abnormal findings Z00.01 History of gastroesophageal reflux (GERD) Z87.19 Flexural eczema L20.82 Eczema type: flexural Laboratory exam ordered as part of routine general medical examination Z00.00 Elevated LDL cholesterol level E78.00 History of seasonal allergies Z88.9 Influenza vaccination administered at current visit Z23 Photophobia of both eyes H53.143 Decreased vision in both eyes H54.3 Obesity (BMI 30-39.9) E66.9 Subjective memory complaints R41.89 Additional Codes RAMON-7 Assessment Billing - RAMON-7 Assessment Tool: RAMON-7 Assessment 37076 ([id number]) PHQ-9 - 50101 - PHQ-9 Billing: Yes ([id number]) Assessment & Plan Assessment & Plan (1) Annual visit for general adult medical examination with abnormal findings: Onset Date: ~12/24/24 Code(s): Z00.01 - Encounter for general adult medical examination with abnormal findings Category: Medical (2) History of gastroesophageal reflux (GERD): Code(s): Z87.19 - Personal history of other diseases of the digestive system Category: Medical (3) Eczema: Code(s): L30.9 - Dermatitis, unspecified Category: Medical Qualifiers: Eczema type: flexural Qualified Code(s): L20.82 - Flexural eczema (4) Laboratory exam ordered as part of routine general medical examination: Code(s): Z00.00 - Encounter for general adult medical examination without abnormal findings Category: Medical (5) Elevated LDL cholesterol level: Code(s): E78.00 - Pure hypercholesterolemia, unspecified Category: Medical (6) History of seasonal allergies: Code(s): Z88.9 - Allergy status to unspecified drugs, medicaments and biological substances Category: Medical (7) Influenza vaccination administered at current visit: Code(s): Z23 - Encounter for immunization Category: Medical (8) Photophobia of both eyes: Code(s): H53.143 - Visual discomfort, bilateral Category: Medical (9) Decreased vision in both eyes: Code(s): H54.3 - Unqualified visual loss, both eyes Category: Medical (10) Obesity (BMI 30-39.9): Code(s): E66.9 - Obesity, unspecified Category: Medical (11) Subjective memory complaints: Code(s): R41.89 - Other symptoms and signs involving cognitive functions and awareness Category: Medical Plan . Orders: Orders Comprehensive Met. Panel Today Z00.00 - Encounter for general adult medical examination without abnormal findings, Z00.01 - Encounter for general adult medical examination with abnormal findings Hemoglobin A1c Today Z00.00 - Encounter for general adult medical examination without abnormal findings, Z00.01 - Encounter for general adult medical examination with abnormal findings Lipid Panel Today Z00.00 - Encounter for general adult medical examination without abnormal findings, Z00.01 - Encounter for general adult medical examination with abnormal findings Vitamin B12 and Folate Today Z00.00 - Encounter for general adult medical examination without abnormal findings, Z00.01 - Encounter for general adult medical examination with abnormal findings Vitamin D 25-OH Total Today Z00.00 - Encounter for general adult medical examination without abnormal findings, Z00.01 - Encounter for general adult medical examination with abnormal findings Complete Blood Count no Diff Today Z00.00 - Encounter for general adult medical examination without abnormal findings, Z00.01 - Encounter for general adult medical examination with abnormal findings Microalbumin, Random (w Creat) Today Z00.00 - Encounter for general adult medical examination without abnormal findings, Z00.01 - Encounter for general adult medical examination with abnormal findings TSH reflex Free T4 Today Z00.00 - Encounter for general adult medical examination without abnormal findings, Z00.01 - Encounter for general adult medical examination with abnormal findings Influenza [id number] Immunization Today Z23 - Encounter for immunization Referrals Ophthalmology Referral H53.143 - Visual discomfort, bilateral, H54.3 - Unqualified visual loss, both eyes Patient Instructions: Health screenings for men You should visit your health care provider regularly, even if you feel healthy. The purpose of these visits is to: Screen for medical issues Assess your risk for future medical problems Encourage a healthy lifestyle Update vaccinations and other preventive care services Help you get to know your provider in case of an illness Information Even if you feel fine, you should still see your provider for regular checkups. These visits can help you avoid problems in the future. For example, the only way to find out if you have high blood pressure is to have it checked regularly. High blood sugar and high cholesterol level also may not have any symptoms in the early stages. Simple blood tests can check for these conditions. There are specific times when you should see your provider or receive specific health screenings. The [place] Preventive Services Task Force publishes a list of recommended screenings. Below are screening guidelines for men ages 40 to 64. BLOOD PRESSURE SCREENING Have your blood pressure checked at least once every year. Watch for blood pressure screenings in your area. Ask your provider if you can stop in to have your blood pressure checked. Ask your provider if you need your blood pressure checked more often if: You have diabetes, heart disease, kidney problems, or are overweight or have certain other health conditions You have a first-degree relative with high blood pressure You are Black Your blood pressure top number is from 120 to 129 mm Hg, or the bottom number is from 70 to 79 mm Hg If the top number is 130 mm Hg or greater or the bottom number is 80 mm Hg or greater, this is considered stage 1 hypertension. Schedule an appointment with your provider to learn how you can lower your blood pressure. Effects of age on blood pressure CHOLESTEROL SCREENING Cholesterol screening should begin at age 35 for men with no known risk factors for coronary heart disease. Repeat cholesterol screening should take place: Every 5 years for men with normal cholesterol levels More often if changes occur in lifestyle (including weight gain and diet) More often if you have diabetes, heart disease, kidney problems, or certain other conditions COLORECTAL CANCER SCREENING If you are under age 45, talk to your provider about getting screened. You may need to be screened if you have a strong family history of colon cancer or polyps. Screening may also be considered if you have risk factors such as a history of inflammatory bowel disease or polyps. If you are age 45 to 75, you should be screened for colorectal cancer. There are several screening tests available: A stool-based fecal occult blood (gFOBT) or fecal immunochemical test (FIT) every year A stool sDNA test every 1 to 3 years Flexible sigmoidoscopy every 5 years or every 10 years with stool testing FIT done every year CT colonography (virtual colonoscopy) every 5 years Colonoscopy every 10 years You may need a colonoscopy more often if you have risk factors for colorectal cancer, such as: Ulcerative colitis A personal or family history of colorectal cancer A history of growths in your colon called adenomatous polyps DENTAL EXAM Go to the dentist once or twice every year for an exam and cleaning. Your dentist will evaluate if you have a need for more frequent visits. DIABETES SCREENING All adults who do not have risk factors for diabetes should be screened starting at age 35 and repeated every 3 years. If you have other risk factors for diabetes, such as a first degree relative with diabetes, overweight or obesity, high blood pressure, prediabetes, or a history of heart disease, you may be tested more often. If you are overweight and have other risk factors, such as high blood pressure and are planning to become , screening is recommended. EYE EXAM Have an eye exam every 2 to 4 years ages 40 to 54 and every 1 to 3 years ages 55 to 64. Your provider may recommend more frequent eye exams if you have vision problems or glaucoma risk. Have an eye exam that includes an examination of your retina (back of your eye) at least every year if you have diabetes. IMMUNIZATIONS Commonly needed vaccines include: Flu shot: get one every year COVID-19 vaccine: ask your provider what is best for you Tetanus-diphtheria and acellular pertussis (Tdap) vaccine: have as one of your tetanus-diphtheria vaccines if you did not receive it as an adolescent Tetanus-diphtheria: have a booster (or Tdap) every 10 years Varicella vaccine: receive 2 doses if you never had chickenpox or the varicella vaccine and were born in 1979 or after Hepatitis B vaccine: receive 2, 3, or 4 doses, depending on your exact circumstances, if you did not receive these as a child or adolescent, until age 59 Shingles (herpes zoster) vaccine: at or after age 50 Ask your provider if you should receive other immunizations, especially if you have certain medical conditions, such as diabetes or are at increased risk for some diseases such as pneumonia. INFECTIOUS DISEASE SCREENING Screening for hepatitis C: all adults ages 18 to 79 should get a one-time test for hepatitis C. Screening for human immunodeficiency virus (HIV): all people ages 15 to 65 should get a one-time test for HIV. Depending on your lifestyle and medical history, you may need to be screened for infections such as syphilis, chlamydia, and other infections. LUNG CANCER SCREENING You should have an annual screening for lung cancer with low-dose computed tomography (LDCT) if: You are age 50 to 80 years AND You have a 20 pack-year smoking history AND You currently smoke or have quit within the past 15 years OSTEOPOROSIS SCREENING If you are age 50 to 64 and have risk factors for osteoporosis, you should discuss screening with your provider. Risk factors can include long-term steroid use, low body weight, smoking, heavy alcohol use, having a fracture after age 50, or a family history of hip fracture or osteoporosis. Osteoporosis PHYSICAL EXAM All adults should visit their provider from time to time, even if they are healthy. The purpose of these visits is to: Screen for diseases Assess risk of future medical problems Encourage a healthy lifestyle Update vaccinations and other preventive care services Maintain a relationship with a provider in case of an illness Your height, weight, and body mass index (BMI) should be checked at every exam. During your exam, your provider may ask you about: Depression and anxiety Diet and exercise Alcohol and tobacco use Safety, such as use of seat belts and smoke detectors Your medicines and risk for interactions PROSTATE CANCER SCREENING If you're 55 through 69 years old, before having the test, talk to your provider about the pros and cons of having a PSA test. Ask about: Whether screening decreases your chance of dying from prostate cancer. Whether there is any harm from prostate cancer screening, such as side effects from testing or overtreatment of cancer when discovered. Whether you have a higher risk of prostate cancer than others. If you are age 55 or younger, screening is not generally recommended. You should talk with your provider about if you have a higher risk for prostate cancer. Risk factors include: Having a family history of prostate cancer (especially a brother or father) Being If you choose to be tested, the PSA blood test is repeated over time (yearly or less often), though the best frequency is not known. Prostate examinations are no longer routinely done on men with no symptoms. Prostate cancer SKIN EXAM Your provider may check your skin for signs of skin cancer, especially if you're at high risk. People at high risk include those who have had skin cancer before, have close relatives with skin cancer, or have a weakened immune system. TESTICULAR EXAM The [place] Preventive Services Task Force (USPSTF) now recommends against performing testicular [email or web address]. Doing testicular self-exams has been shown to have little to no benefit.
[2024-12-24 11:53] VITALS: BP 122/70; PULSE 69; RESP 12; TEMP 36.2; O2SAT 99; BMI 35.5
== END 2024-12-24 12:39 | disposition home or self-care (01) ==
LOC: HO.HMCFM 11:48
PROVIDERS: PCP Nurse Practitioner Family; Visit Provider Nurse Practitioner Family
DX: Z00.00 Encounter for general adult medical examination without abnormal findings (principal); L20.82 Flexural eczema; H53.143 Visual discomfort, bilateral; E78.00 Pure hypercholesterolemia, unspecified; H54.3 Unqualified visual loss, both eyes; Z87.19 Personal history of other diseases of the digestive system; Z88.9 Allergy status to unspecified drugs, medicaments and biological substances; Z23 Encounter for immunization; E66.9 Obesity, unspecified; R41.89 Other symptoms and signs involving cognitive functions and awareness